=== PATIENT | male | born 1945 | race Caucasian/White ===

== ENCOUNTER 2021-03-15 14:26 | Observation (INO) | payer OTHER ==
[~2021-03-15] VITALS: Ht 182.9 cm; Wt 79.0 kg
[2021-03-15] MEDS ORDERED: ALBU2.5V5 INH (14:37)
[2021-03-15] MEDS ORDERED: CELEXA40 M1 PO (14:38)
[2021-03-15] MEDS ORDERED: IPRAT-ALBUT 0.5-3 ML INH (14:38)
[2021-03-15] MEDS ORDERED: ALBU90OI INH (14:38)
[2021-03-15] MEDS ORDERED: BUDESONIDE0.5 MG/2 M INH (14:38)
[2021-03-15] MEDS ORDERED: DIGOX250 MCG PO (14:39)
[2021-03-15] MEDS ORDERED: METO100 PO (14:39)
[2021-03-15] MEDS ORDERED: DULERA 100 MCG/13 GM INH (14:40)
[2021-03-15] MEDS ORDERED: STRIVERDI RESPIM4 G1 (14:41)
[2021-03-15] MEDS ORDERED: XARELTO20 MG PO (14:41)
[2021-03-15] MEDS ORDERED: Crestor20 MG PO (14:42)
[2021-03-15] MEDS ORDERED: TRAZ50 PO (14:42)
[2021-03-15 15:03] LABS: BASOPHILS ABSOLUTE AUTO 0.05 K/mm3 (0.00-0.23); BASOPHILS PERCENT AUTO 1 % (0-2); EOSINOPHILS ABSOLUTE AUTO 0.18 K/mm3 (0.00-0.68); EOSINOPHILS PERCENT AUTO 3 % (0-6); Hematocrit 42.3 % (37.0-53.0); Hemoglobin 13.7 g/dL (13.5-17.5); IMMATURE GRAN ABSOLUTE AUTO 0.03 K/mm3 (0.00-0.10); IMMATURE GRAN PERCENT AUTO 1 % (0-1); LYMPHOCYTES ABSOLUTE AUTO 0.82 K/mm3 (0.84-5.20); LYMPHOCYTES PERCENT AUTO 13 % (21-46); MONOCYTES ABSOLUTE AUTO 0.79 K/mm3 (0.16-1.47); MONOCYTES PERCENT AUTO 13 % (4-13); Mean Corpuscular HGB 32.4 pg (26.0-34.0); Mean Corpuscular HGB Conc 32.4 g/dL (31.5-36.5); Mean Corpuscular Volume 100 fL (80-100); Mean Platelet Volume 12.3 fL (9.1-12.4); NEUTROPHILS ABSOLUTE AUTO 4.31 K/mm3 (1.96-9.15); NEUTROPHILS PERCENT AUTO 70 % (41-73); Platelet Count 170 K/mm3 (150-400); RDW Coefficient Variation 14.2 % (11.7-14.2); RDW Standard Deviation 51.8 fL (35.1-46.3); Red Blood Cell Count 4.23 M/mm3 (4.30-5.90); White Blood Cell Count 6.18 K/mm3 (4.00-11.30)
[2021-03-15 15:21] LABS: Alanine Aminotransfer (ALT/SGP 15 U/L (12-78); Albumin, Blood 3.3 g/dL (3.4-5.0); Alk Phos 53 U/L (50-136); Anion Gap 3 mmol/L (6-16); Aspartate Aminotrans (AST/SGOT 15 U/L (12-37); Bilirubin, Total 0.6 mg/dL (0.1-1.0); Blood Urea Nitrogen 10 mg/dL (8-24); Bun/Creatinine Ratio 10.8 (12.0-20.0); CO2, Blood 31 mmol/L (21-32); Calcium, Blood 8.9 mg/dL (8.5-10.1); Chloride, Blood 103 mmol/L (98-108); Creatinine, Blood 0.93 mg/dL (0.60-1.20); Globulin, Blood 3.4 g/dL (2.2-4.0); Glomerular Filtration Rate >60 (60-); Glucose, Blood 154 mg/dL (70-99); Potassium, Blood 4.5 mmol/L (3.5-5.5); Sodium, Blood 137 mmol/L (136-145); Total Protein, Blood 6.7 g/dL (6.4-8.2); Troponin I <0.015 ng/mL (0.000-0.040)
[2021-03-15 16:15] LABS: Base Excess Venous 8.7 mmol/L; Bicarbonate Venous 29.4 mmol/L (24.0-30.0); PCO2 Venous 61.9 mmHg (38-42); PO2 Venous 33.1 mmHg (38-42); pH Blood Venous 7.35 (7.34-7.37)
[2021-03-15 18:16] LABS: International Normalized Ratio 1.31; Prothrombin Time Results 13.5 Sec (9.7-11.5)
[2021-03-15 21:19] LABS: Digoxin (Lanoxin) 0.66 ug/mL (0.80-2.00)
[2021-03-16 00:09] LABS: Influenza A, PCR NEGATIVE (NEGATIVE); Influenza B, PCR NEGATIVE (NEGATIVE); Resp Syncytial Virus, PCR NEGATIVE (NEGATIVE); SARS-Cov-2 (COVID-19) PCR, MMC NEGATIVE (NEGATIVE)
[2021-03-16 03:19] LABS: Hematocrit 42.4 % (37.0-53.0); Hemoglobin 14.3 g/dL (13.5-17.5); Mean Corpuscular HGB Conc 33.7 g/dL (31.5-36.5); Mean Corpuscular Volume 98 fL (80-100); Mean Platelet Volume 12.4 fL (9.1-12.4); Platelet Count 170 K/mm3 (150-400); RDW Standard Deviation 51.2 fL (35.1-46.3); Red Blood Cell Count 4.33 M/mm3 (4.30-5.90)
[2021-03-16 03:26] LABS: BASOPHILS ABSOLUTE AUTO 0.05 K/mm3 (0.00-0.23); BASOPHILS PERCENT AUTO 1 % (0-2); EOSINOPHILS ABSOLUTE AUTO 0.26 K/mm3 (0.00-0.68); EOSINOPHILS PERCENT AUTO 4 % (0-6); IMMATURE GRAN ABSOLUTE AUTO 0.02 K/mm3 (0.00-0.10); IMMATURE GRAN PERCENT AUTO 0 % (0-1); LYMPHOCYTES ABSOLUTE AUTO 1.37 K/mm3 (0.84-5.20); LYMPHOCYTES PERCENT AUTO 19 % (21-46); MONOCYTES ABSOLUTE AUTO 0.83 K/mm3 (0.16-1.47); MONOCYTES PERCENT AUTO 11 % (4-13); NEUTROPHILS ABSOLUTE AUTO 4.72 K/mm3 (1.96-9.15); NEUTROPHILS PERCENT AUTO 65 % (41-73); White Blood Cell Count 7.25 K/mm3 (4.00-11.30)
[2021-03-16 03:37] LABS: Anti-Xa UFH, PHA Monitoring 1.26 IU/mL
[2021-03-16 04:14] LABS: Alanine Aminotransfer (ALT/SGP 14 U/L (12-78); Albumin, Blood 3.5 g/dL (3.4-5.0); Alk Phos 58 U/L (50-136); Anion Gap 5 mmol/L (6-16); Aspartate Aminotrans (AST/SGOT 14 U/L (12-37); Bilirubin, Total 0.6 mg/dL (0.1-1.0); Blood Urea Nitrogen 12 mg/dL (8-24); Bun/Creatinine Ratio 13.9 (12.0-20.0); CO2, Blood 28 mmol/L (21-32); Calcium, Blood 9.2 mg/dL (8.5-10.1); Chloride, Blood 103 mmol/L (98-108); Creatinine, Blood 0.86 mg/dL (0.60-1.20); Globulin, Blood 3.4 g/dL (2.2-4.0); Glomerular Filtration Rate >60 (60-); Glucose, Blood 98 mg/dL (70-99); Potassium, Blood 4.1 mmol/L (3.5-5.5); Sodium, Blood 136 mmol/L (136-145); Total Protein, Blood 6.9 g/dL (6.4-8.2)
--- NOTE | 2021-03-16 05:22 | NUR ---
SHIFT SUMMARY: VINCE WAS REFERRED TO [facility] BY THE MD. HE HAS BEEN HAVING SOB FOR SEVERAL DAY. CT SCAN SHOWED PE IN THE LEFT LOWER LOBE, SMALL IN SIZE BUT IN SEVERAL SEGMENTS. HE WAS REFERRED FOR MANAGEMENT AND MONITORING. AOX3, COOPERATIVE. INDEPENDENT IN THE ROOM. DYSPNIC WITH LONG EXERTION. LUNG SOUNDS ARE DIMINISHED, SOME WHEEZES IN THE UPPER LOBES. HE DOES HAVE HX OD COPD. ON TELE AFIB. NO CHEST PAIN OR DISCOMFORT. IV IN LEFT AC INFILTRATED DURING HEPARIN INFUSION. NEW IV STARTED IN THE RIGHT FA. HEPARIN CONTINUES AT 18MG/UNIT/HR. GOOD APPETITE. VS WNL, AFEBRILE. USES CALL LIGHT APPROPRIATLY. [facility]
--- NOTE | 2021-03-16 08:00 | NUR ---
BLOOD PRESSURE HIGH. GIVEN METOPROLOL EARLY AND WILL RECHECK. AWARE
--- NOTE | 2021-03-16 11:46 | NUR ---
NOTIFIED PHARMACY, MIS, PTT 138.
--- NOTE | 2021-03-16 15:09 | NUR ---
NOTIFIED PATIENT HAD 6 BEAT OF VT WHEN HE WAS GETTING GO GOING TO BATHROOM. HAD INCREASED HEART RATE NIGHT BEFORE WHEN DOING SAME THING. TO INCREASE MEDS
--- NOTE | 2021-03-16 16:02 | NUR ---
ALERT. ORIENTED. INDEPENDENT IN ROOM. MEDS CHANGED WITH PATIENT AWARE. HEPARIN STOPPED. UNLABORED RESPIRATIONS. ABLE TO MAKE NEEDS KNOWN. PLEASANT. TELE ON. WCTM
[2021-03-17 05:11] LABS: Hematocrit 42.1 % (37.0-53.0); Mean Corpuscular HGB 32.6 pg (26.0-34.0); Mean Corpuscular HGB Conc 33.3 g/dL (31.5-36.5); Mean Corpuscular Volume 98 fL (80-100); Mean Platelet Volume 12.5 fL (9.1-12.4); Platelet Count 170 K/mm3 (150-400); RDW Standard Deviation 50.8 fL (35.1-46.3); Red Blood Cell Count 4.29 M/mm3 (4.30-5.90); White Blood Cell Count 7.56 K/mm3 (4.00-11.30)
[2021-03-17 06:28] LABS: Alanine Aminotransfer (ALT/SGP 13 U/L (12-78); Albumin, Blood 3.3 g/dL (3.4-5.0); Albumin/Globulin Ratio 0.9 (0.8-1.8); Alk Phos 51 U/L (50-136); Anion Gap 7 mmol/L (6-16); Aspartate Aminotrans (AST/SGOT 13 U/L (12-37); Bilirubin, Total 0.5 mg/dL (0.1-1.0); Blood Urea Nitrogen 11 mg/dL (8-24); Bun/Creatinine Ratio 14.5 (12.0-20.0); CO2, Blood 26 mmol/L (21-32); Chloride, Blood 103 mmol/L (98-108); Creatinine, Blood 0.76 mg/dL (0.60-1.20); Globulin, Blood 3.6 g/dL (2.2-4.0); Glomerular Filtration Rate >60 (60-); Glucose, Blood 132 mg/dL (70-99); Magnesium, Blood 1.8 mg/dL (1.6-2.4); Potassium, Blood 4.4 mmol/L (3.5-5.5); Sodium, Blood 136 mmol/L (136-145); Total Protein, Blood 6.9 g/dL (6.4-8.2)
[2021-03-17] MEDS ORDERED: ELIQUIS5 M2 PO (10:54)
[2021-03-17] MEDS ORDERED: DILT120 PO (10:55)
--- NOTE | 2021-03-17 12:26 | NUR ---
PT DISCHARGED THE PT VERBALIZED UNDERSTANDING OF THE DC INSTRUCTIONS. THE PT WAS GIVEN MEDICATION VOUCHERS FOR THE STEPHANIE OH THE INFORMAL WAITER/WAITRESS BEFORE DC. THE PT PRESCRIPTIONS WERE FAXED TO THE [facility] ALSO. THE PT WAS REMINDED TO CALL HIS PCP FOR A POST HOSPITAL REVIEW. THE PT WAS TRANSFERED VIA WHEELCHAIR TO THE FRONT ENTRANCE TO MEET HIS RIDE.
== END 2021-03-17 11:40 | disposition home or self-care (01) ==
LOC: ER 14:26 → MEDS 14:27 → ER 17:26 → MEDS 18:37 → ENPENDDIS 03-17 10:48 → MEDS 03-17 11:40
PROVIDERS: Internal Medicine; Pharmacist; Student in an Organized Health Care Education/Training Program; ADMIT Internal Medicine
DX: I26.94 Multiple subsegmental thrombotic pulmonary emboli without acute cor pulmonale (principal); J44.1 Chronic obstructive pulmonary disease with (acute) exacerbation; I48.91 Unspecified atrial fibrillation; I10 Essential (primary) hypertension; F17.200 Nicotine dependence, unspecified, uncomplicated; E78.5 Hyperlipidemia, unspecified; Z88.8 Allergy status to other drugs, medicaments and biological substances; Z79.01 Long term (current) use of anticoagulants; Z20.822 Contact with and (suspected) exposure to COVID-19
CPT/HCPCS: 0241U; 36415; 71046; 71260; 80053; 80162; 82803; 83735; 83880; 84484; 85025; 85027; 85520; 85610; 85730; 93005; 93010; 93306; 94640; 94664; 94760; 96374; 96375; 96376; 99285-25; A9270; G0378; J1644; J2930; Q9967

== ENCOUNTER 2021-10-30 11:06 | Inpatient (IN) | payer OTHER ==
[~2021-10-30] VITALS: Ht 182.9 cm; Wt 74.4 kg
[~2021-10-30 11:06] MED LIST: ALBU2.5V5 INH; ALBU90OI INH; BUDESONIDE0.5 MG/2 M INH; CELEXA40 M1 PO; Crestor20 MG PO; DIGOX250 MCG PO; DILT120 PO; DULERA 100 MCG/13 GM INH; ELIQUIS5 M2 PO; IPRAT-ALBUT 0.5-3 ML INH; METO100 PO; STRIVERDI RESPIM4 G1; TRAZ50 PO; XARELTO20 MG PO
[2021-10-30 12:09] LABS: BASOPHILS ABSOLUTE AUTO 0.05 K/mm3 (0.00-0.23); BASOPHILS PERCENT AUTO 1 % (0-2); EOSINOPHILS ABSOLUTE AUTO 0.09 K/mm3 (0.00-0.68); EOSINOPHILS PERCENT AUTO 1 % (0-6); Hematocrit 45.6 % (37.0-53.0); Hemoglobin 15.5 g/dL (13.5-17.5); IMMATURE GRAN ABSOLUTE AUTO 0.02 K/mm3 (0.00-0.10); IMMATURE GRAN PERCENT AUTO 0 % (0-1); LYMPHOCYTES ABSOLUTE AUTO 1.15 K/mm3 (0.84-5.20); LYMPHOCYTES PERCENT AUTO 15 % (21-46); MONOCYTES ABSOLUTE AUTO 0.89 K/mm3 (0.16-1.47); MONOCYTES PERCENT AUTO 11 % (4-13); Mean Corpuscular HGB 33.2 pg (26.0-34.0); Mean Corpuscular Volume 98 fL (80-100); NEUTROPHILS ABSOLUTE AUTO 5.58 K/mm3 (1.96-9.15); NEUTROPHILS PERCENT AUTO 72 % (41-73); Platelet Count 161 K/mm3 (150-400); RDW Coefficient Variation 14.6 % (11.7-14.2); RDW Standard Deviation 53.6 fL (35.1-46.3); Red Blood Cell Count 4.67 M/mm3 (4.30-5.90); White Blood Cell Count 7.78 K/mm3 (4.00-11.30)
[2021-10-30 12:12] LABS: Mean Platelet Volume 13.1 fL (9.1-12.4)
[2021-10-30 12:19] LABS: Albumin, Blood 3.4 g/dL (3.4-5.0); Bilirubin, Total 1.5 mg/dL (0.1-1.0); Bun/Creatinine Ratio 14.1 (12.0-20.0); Calcium, Blood 9.3 mg/dL (8.5-10.1); Creatinine, Blood 0.92 mg/dL (0.60-1.20); Globulin, Blood 3.3 g/dL (2.2-4.0); Potassium, Blood 4.5 mmol/L (3.5-5.5); Total Protein, Blood 6.7 g/dL (6.4-8.2)
[2021-10-30 15:17] LABS: pH Blood Venous 7.36 (7.34-7.37)
[2021-10-30 15:18] LABS: Base Excess Venous 9.2 mmol/L; Bicarbonate Venous 29.1 mmol/L (24.0-30.0); PCO2 Venous 61.9 mmHg (38-42)
--- NOTE | 2021-10-30 17:43 | NUR ---
ADMISSION NOTE PT IS A/Ox4 AND FOLLOWS DIRECTIONS FROM STAFF APPROPRIATELY. PT WAS ABLE TO STAND/PIVOT FROM ED BED TO PCU BED WITH LITTLE ASSISTANCE. PT MAINTAINS SP02 >94 ON RA. SOB NOTED WHEN PT AMBULATES, BUT RECOVERS QUICKLEY. HR 120-140'S WHEN AMBULATING, BUT DECREASES TO 90-120'S WHEN AT REST. PT RECEIVINIG DILTIAZEM 5MG/HR. PT EDUCATED CLIMATOLOGY TEACHER LIGHT AND SAFETY PRECAUTIONS WELL ORIENTATED TO THE ROOM. SBP MAINTAINING IN THE 140'S. GLENN RAND
--- NOTE | 2021-10-30 20:28 | NUR ---
CARE ASSUMPTION: PATIENT IN BED WITH CARDIZEM DRIP AT 10 MG/HR, HR 110-130S, AFEBRILE. PATIENT REPORTED SOB - RT GAVE NEBULIZER TREATMENT RESULTING IN IMPROVED O2 SATS AND WORK OF BREATHING. PATIENT PLEASANT AND COOPERATIVE WITH CARE. BED ALARM SET TO PREVENT UNSUPERVISED ACTIVITY, EDEMATOUS LEGS RAISED ABOVE HEART, AND CALL LIGHT IN REACH.
--- NOTE | 2021-10-30 22:51 | NUR ---
UPDATE: PATIENT INCREASED SOB AND O2 SATS 87-92% RA. RT PROVIDED SECOND BREATHING TREATMENT, BUT RECOMMENDED CALL TO DR FOR DIURESIS AND/OR SOLUMEDROL. THIS RN CALLED HOSPITALIST DR. DANIELLE R/T WOB AND FLUID OVERLOAD AND RECEIVED NEW ORDERS FOR 1X DOSE OF LASIX AND FLUID RESTRICTION OF 1.5L/DAY.
--- NOTE | 2021-10-30 23:51 | NUR ---
UPDATE: DIALTIAZEM DRIP STOPPED AT THIS TIME. HR 80-100S.
--- NOTE | 2021-10-31 01:21 | NUR ---
UPDATE: PATIENT HR >120S. RESTARTED DILTIAZEM 5 MLS/HR AT THIS TIME.
[2021-10-31 03:50] LABS: Hematocrit 51.5 % (37.0-53.0); Mean Corpuscular HGB 32.7 pg (26.0-34.0); Mean Corpuscular Volume 99 fL (80-100); Mean Platelet Volume 12.5 fL (9.1-12.4); Platelet Count 166 K/mm3 (150-400); RDW Coefficient Variation 14.6 % (11.7-14.2); RDW Standard Deviation 53.9 fL (35.1-46.3); White Blood Cell Count 8.26 K/mm3 (4.00-11.30)
[2021-10-31] MEDS ORDERED: Bisoprolol Fuma10 MG PO (03:58)
[2021-10-31] MEDS ORDERED: DIGOX125 MC1 PO (03:59)
[2021-10-31] MEDS ORDERED: SPIR25 PO (04:00)
[2021-10-31 04:07] LABS: Bun/Creatinine Ratio 15.4 (12.0-20.0); Calcium, Blood 8.5 mg/dL (8.5-10.1); Creatinine, Blood 0.97 mg/dL (0.60-1.20)
[2021-10-31] MEDS ORDERED: ESCI20 PO (04:39)
--- NOTE | 2021-10-31 05:24 | NUR ---
SHIFT SUMMARY: PATIENT DENIES CHEST PAIN, AFEBRILE. HR 70-130S T/O SHIFT. 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 PULSE OX MOVED TO EAR FOR BETTER PLETH. DILTIAZEM WAS BRIEFLY PAUSED WHEN PATIENT PULLED IV - NEW IV PLACED AND DRIP RUNNING AT 5 MLS/HR. PATIENT PLEASANT AND COOPERATIVE WITH CARE, USES CALL LIGHT APPROPRIATELY. HOME MEDS RECONCILED. BED LOW WITH CALL LIGHT IN REACH. WILL CONTINUE TO MONITOR AND REPORT TO ONCOMING RN.
--- NOTE | 2021-10-31 17:15 | NUR ---
PT UPDATE PT'S HR CONSISTANTLY RUNNING 120-140'S AND SOMETIMES REACHING THE 150'S. PT ALSO HAD A 6 BEAT RUN OF ASYMPTOMATIC VTACH. UPDATED DR. YOUNG ABOUT THE PT'S CHANGE IN CONDITION WHERE SHE ORDERED PT BE PLACED BACK ON THE DILTIAZEM DRIP AT 5MG/HR WELL NEW MAG/POTASSIUM LABS BE DRAWN. AFTER 20 MIN PT STILL MAINTAINING 120'S-140'S SO DILTIAZEM TITRATED TO 10MG/HR PER ORDERS IN EMAR. WILL CONTINUE TO CLOSELY MONITOR
[2021-10-31 18:02] LABS: Potassium, Blood 3.9 mmol/L (3.5-5.5)
--- NOTE | 2021-10-31 18:17 | NUR ---
SHIFT SUMMARY PT IS A/Ox4 AND COOPERATIVE WITH STAFF. PT WAS TIRATED OFF DILTIAZEM DURING THE NIGHT AND PT'S HR HAS MAINAINED 100'S-120 T/O MOST OF THE SHIFT. TOWARDS THE PM THE PT'S HR MAINTAINED 120'S-140'S AND SOMETIMES TOUCHING THE 150'S. PT STARTED BACK ON DILTIAZEM AT 5MG/HR THAT WAS LATER TIRATED TO 10MG/HR. PT HAS MAINATINED SPO2 >94 ON 2L O2 VIA NC. PT LS IS WHEEZY T/O, BUT FREQUENT BREATHING TREATMENTS APPEAR TO HELP. PT DOES NOT REPORT ANY CHEST PAIN OR PRESSURE. PT DISPLAYS DYSPNEA WHEN STANDING TO VOID OR WHEN REPOSITIONING IN BED. PT ALSO HAD A 6 BEAT RUN OF ASYMPTOMATIC VTACH WHEN RESUMING THE DILTIAZEM DRIP. NADN T/O THE SHIFT
--- NOTE | 2021-10-31 22:42 | NUR ---
CARE ASSUMPTION: PATIENT SITTING ON SIDE OF BED WITH CARDIZEM DRIP AT 10 MLS/HR RUNNING AT BEGINNING OF SHIFT. PATIENT REPORTS FEELING "MUCH BETTER" TODAY, EXPRESSES CONCERN ABOUT GOING HOME WHERE HE HAS NO SUPPORT. HR SUSTAINING 80-100S, TITRATED DRIP TO 5 MLS/HR ~2130. RT TO SEE PATIENT AT THIS TIME AND REPORTS CRACKLES RETURNING TO BASES AND BREATHING TREATMENT DID NOT IMPROVE PATIENT SYMPTOMS. BED LOW WITH CALL LIGHT IN REACH.
--- NOTE | 2021-11-01 00:59 | NUR ---
UPDATE: 10 BEAT VTACH AT THIS TIME. PATIENT DENIES DISCOMFORT.
--- NOTE | 2021-11-01 01:09 | NUR ---
CALL TO HOSPITALIST: PATIENT HR 60-100S FOR >3 HRS. THIS RN CALLED HOSPITALIST ABOUT BRIDGING TO PO DILTIAZEM AT THIS TIME PER PROTOCOL. DR. DANIELLE CONCERNED ABOUT STARTING PO DILTIAZEM WITH SYSTOLIC HF, SAID TO STOP DRIP AND "LEAVE TO DAY TEAM" WHETHER TO START CARDIZEM PO OR UP METOPROLOL DOSE.
--- NOTE | 2021-11-01 01:13 | NUR ---
DILTIAZEM DRIP STOPPED AT THIS TIME.
[2021-11-01 04:39] LABS: Albumin, Blood 3.1 g/dL (3.4-5.0); Anion Gap 4 mmol/L (6-16); Blood Urea Nitrogen 18 mg/dL (8-24); Bun/Creatinine Ratio 28.2 (12.0-20.0); CO2, Blood 36 mmol/L (21-32); Calcium, Blood 8.6 mg/dL (8.5-10.1); Chloride, Blood 94 mmol/L (98-108); Creatinine, Blood 0.64 mg/dL (0.60-1.20); Glomerular Filtration Rate 99 (60-); Glucose, Blood 120 mg/dL (70-99); Phosphorus, Blood 3.2 mg/dL (2.5-4.9); Potassium, Blood 3.5 mmol/L (3.5-5.5); Sodium, Blood 134 mmol/L (136-145)
--- NOTE | 2021-11-01 05:13 | NUR ---
SHIFT SUMMARY: PATIENT DENIES CHEST PAIN OR SOB, REPORTED FEELING "BETTER THAN I HAVE IN YEARS" DURING 0400 VITALS. WAS DISORIENTED DURING 0000 VITALS, BUT WAS DIRECTABLE AND CLEARED WITH RE-ORIENTATION. BED ALARM SET. O2 SATS >90% RA. MEDICATED PER EMAR. HR HAS MAINTAINED <110S SINCE STOPPING THE DILTIAZEM DRIP. PATIENT HAD 2.7 SEC PAUSE IN EARLY AM. BED LOW WITH CALL LIGHT IN REACH. WILL CONTINUE TO MONITOR AND REPORT TO ONCOMING RN.
--- NOTE | 2021-11-01 09:50 | NUR ---
UPDATE SPOKE WITH DR. CORNELIUS ABOUT PT'S PLAN OF CARE WELL HIS STATUS. DR. CORNELIUS REVIEWED THE PT'S MEDICATIONS AND ORDERED CHANGES TO THEIR ROUTES DUE TO THE PT BEING A HIGH ASPIRATION RISK. PT'S BiPAP SETTINGS WERE MODIFIED BY RT TO 22/8, FIO2 30%, BUR @ 16. PT IS HOLDING SPO2 >94 WITH THESE SETTINGS. WILL CONTINUE TO MONITOR CLOSELY
--- NOTE | 2021-11-01 09:55 | NUR ---
UPDATE SPOKE WITH DR. YOUNG ABOUT PT'S INCREASELY VARYING HR WELL [address] YOUNG THEN ORDERED A CARDIOLOGY CONSULT TO FUTHER THE PT'S PLAN OF CARE. PTS BP'S HAVE BEEN STABLE WITH NO DIZZNESS OR WEAKNESS REPORTED. WILL CONTINUE TO MONITOR
--- NOTE | 2021-11-01 16:45 | NUR ---
Notified licensed customs broker that hr sustaining over 120's, bp stable, new order for additional dose of metoprolol tartrate 50mg po now, entered. Will continue to monitor.
--- NOTE | 2021-11-01 19:19 | NUR ---
SHIFT SUMMARY PT IS A/Ox4 AND FOLLOWS DIRECTONS FROM STAFF. PT'S HR HAS BEEN VARYING WILDLY T/O THE SHIFT FROM 40'S-150'S. HR PRIMARLY HOLDING 110-120'S. PT RECEIVED A CARDIOLOGY CONSULT WHERE HE WAS PUT ON DIGOXIN PO AND AN INCREASE IN HIS LOPRESSER. PT MAINTAINS SPO2 >94% ON RA AND HIS LS HAVE BEEN IMPROVING. PT'S EDEMA HAS IMPROVED WELL. BP'S VARIED 110'S-140'S BUT ARE STABLE. PRIMARY GOAL IS RATE CONTROL AND PREVENTION OF ANY MORE PAUSES. NADN, VSS T/O THE SHIFT
[2021-11-02 02:15] LABS: BASOPHILS ABSOLUTE AUTO 0.01 K/mm3 (0.00-0.23); BASOPHILS PERCENT AUTO 0 % (0-2); EOSINOPHILS PERCENT AUTO 0 % (0-6); Hemoglobin 15.7 g/dL (13.5-17.5); IMMATURE GRAN ABSOLUTE AUTO 0.05 K/mm3 (0.00-0.10); IMMATURE GRAN PERCENT AUTO 1 % (0-1); LYMPHOCYTES ABSOLUTE AUTO 0.73 K/mm3 (0.84-5.20); LYMPHOCYTES PERCENT AUTO 7 % (21-46); MONOCYTES ABSOLUTE AUTO 0.92 K/mm3 (0.16-1.47); MONOCYTES PERCENT AUTO 9 % (4-13); Mean Corpuscular HGB 32.5 pg (26.0-34.0); Mean Corpuscular HGB Conc 34.1 g/dL (31.5-36.5); Mean Corpuscular Volume 95 fL (80-100); Mean Platelet Volume 12.6 fL (9.1-12.4); NEUTROPHILS ABSOLUTE AUTO 8.77 K/mm3 (1.96-9.15); NEUTROPHILS PERCENT AUTO 84 % (41-73); Platelet Count 170 K/mm3 (150-400); RDW Coefficient Variation 14.1 % (11.7-14.2); RDW Standard Deviation 49.4 fL (35.1-46.3); Red Blood Cell Count 4.83 M/mm3 (4.30-5.90); White Blood Cell Count 10.48 K/mm3 (4.00-11.30)
[2021-11-02 02:47] LABS: Albumin, Blood 3.2 g/dL (3.4-5.0); Anion Gap 6 mmol/L (6-16); Blood Urea Nitrogen 30 mg/dL (8-24); CO2, Blood 34 mmol/L (21-32); Chloride, Blood 93 mmol/L (98-108); Creatinine, Blood 1.07 mg/dL (0.60-1.20); Digoxin (Lanoxin) 1.24 ug/mL (0.80-2.00); Glomerular Filtration Rate 72 (60-); Glucose, Blood 124 mg/dL (70-99); Phosphorus, Blood 3.9 mg/dL (2.5-4.9); Sodium, Blood 133 mmol/L (136-145)
--- NOTE | 2021-11-02 05:45 | NUR ---
SHIFT SUMMARY ASSUMED CARE OF PT AT 1900. PT IS ABLE TO NOD HEAD WITH UNDERSTANDING BUT IS NOT TALKING. PT AWAKE AND ASKED TO TAKE OFF MASK BUT WAS REDIRECTED AND FELL BACK ASLEEP. AT AROUND 0300 PT AWOKE ASKING FOR WATER. DISCUSSED CARE WITH RT AND PT WAS TAKEN OFF BIPAP FOR 1 HOUR. ORAL CARE AND BED CHAGE PERFORMED. PT TOLERATED DRINKING WATER WELL. PO MEDS KHANH EARLIER DUE TO LETHARGY. PT WENT BACK ON MASK AND IS TOLERATING IT WELL. HEART SOUNDS IRREGULAR. 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 LUNG SOUNDS VERY DIMINISHED AT BASES, BIPAP SETTINGS REMAIN 22/8 AT 30%. PT HAD SMALL BM WITH SHIFT, ABD IS VERY DISTENED AND FIRM. TAO DRAINING CLEAR YELLOW URINE. PT WAS TOTAL CARE, TURNED Q2. PT REPORTED PAIN WITH MOVEMENT BUT NOT AT REAST. PT LLE IS WEEPING, AND RLE DRESSING C/D/I. PT BUTTOCK IS VERY EXCORIATED. MEPILEX TO COCCYX.
--- NOTE | 2021-11-02 05:58 | NUR ---
SHIFT SUMMARY ASSUMED CARE OF PT AT 1900. PT IS A/OX4. HEART SOUNDS IRREGULAR. PT WAS IN AFIB IN THE 120-150 AT THE START OF SHIFT. HOSPITALIST NOFITED AND ORDERED LOPRESSOR, THIS HAD NO EFFECT. HOSPITALIST THEN REVIEWED CHART MORE EXTENSIVLY AND ORDRED ANOTHER DOSE OF DIGOXIN. PT REPONDED WELL AFTER 2 HOURS AND HR IS IN THE 110S THE REST OF THE NIGHT. PT WAS A 1P ASSIST TO BATHROOM. USED URINAL T/O THE NIGHT. PT HAD NO OTHER COMPLAINTS.
--- NOTE | 2021-11-02 10:56 | NUR ---
UPDATE PT CURRENTLY RESTING. HR CURRENTLY A-FIB AT 70-90'S
--- NOTE | 2021-11-02 15:13 | NUR ---
Pt resting in bed and is A&O. Pt denies pain and dyspnea at this time. Pt reports living with a roomate, is not and has one son whom he has not been in contact with for 30 years. Pt reports at baseline he is independent of his ADLs. He does express concerns regarding his heart health and knows he may need caregiver support at some point. Continued active listening and answered questions. Gentle education on disease process inclduing trajectory. Discussed the importance of routine conversations with PCP regarding disease process and making multiple plans as disease progresses. Discussed considering [facility] program with Pt being in agreement. Pt expresses appreciation and reports no other concerns at this time. Spoke with RN Alejandra Smith and relayed Pt's request for the AIM program. Palliative Care will remain available.
--- NOTE | 2021-11-02 17:41 | NUR ---
SHIFT SUMMARY PT A/OX4 AND COOPERATIVE OF CARE. PT HR RANGED 70-130'S THROUGHOUT SHIFT WITH OCCSASIONAL RUNS OF VTACH, 8 BEAT RUN PRINTED AND IN CHART. OTHER VSS THROUGHOUT SHIFT WITH O2 SATS >90% ON RA. PT REPORTS LEFT ABD PAIN, REPOSITIONIG FOR COMFORT AND TREATED PER EMAR. PT STARTED ON DIGOXIN TODAY PER ORDERS. NO REPORT OF CHEST PAIN/PRESSURE THROUGHOUT SHIFT. NO REPORT OF SOB THROUGHOUT SHIFT. PT UP IN ROOM MULTIPLE TIMES TO USE URINAL AND TOILET, TOLERATED WELL. PT REMAINED ON FLUID RESTRICTION. PT REORTED "SWELLING IN MY ANKLES IS DOING SO MUCH BETTER TODAY." LASIX DC'D AND PT STARTED ON SPIRONOLACTONE PER ORDERS.
[2021-11-03 03:16] LABS: Base Excess Venous 12.6 mmol/L; Bicarbonate Venous 34.4 mmol/L (24.0-30.0); PCO2 Venous 46.4 mmHg (38-42)
[2021-11-03 04:40] LABS: Anion Gap 5 mmol/L (6-16); Blood Urea Nitrogen 30 mg/dL (8-24); Bun/Creatinine Ratio 29.1 (12.0-20.0); CO2, Blood 34 mmol/L (21-32); Calcium, Blood 8.8 mg/dL (8.5-10.1); Chloride, Blood 94 mmol/L (98-108); Creatinine, Blood 1.03 mg/dL (0.60-1.20); Digoxin (Lanoxin) 1.52 ug/mL (0.80-2.00); Glomerular Filtration Rate 76 (60-); Glucose, Blood 108 mg/dL (70-99); Potassium, Blood 4.1 mmol/L (3.5-5.5); Sodium, Blood 133 mmol/L (136-145)
--- NOTE | 2021-11-03 06:05 | NUR ---
SHIFT SUMMARY ASSUMED CARE OF PT AT 1900. PT IS A/OX4. HEART SOUNDS IRREGULAR. TELE SHOWED AFIB T/O THE NIGHT. PT HAD MULTIPLE RUNS OF 5BEETS OF VATCH. PT ASYMTOMATIC AND SLEEPING USUALLY. PT HR WAS MORE CONTROLED THS NOC. RANGED FROM 120S-70S. LUNG SOUNDS COURSE. PT STATES HE IS FEELING BETTER EXCEPT FOR HAVING ABD PAIN, WHICH HE SAYS HE HAS NOT HAD A SCAN FOR AND IS WORRIED THAT IT MIGHT BE SOMETHING THAT BRINGS HIM BACK TO HOSPITAL. ABD IS SOFT BUT THE PAIN IS SHARP. TYENOL HELPS A LITTLE BUT NOT MUCH.
--- NOTE | 2021-11-03 16:51 | NUR ---
SHIFT SUMMARY PT A/O X4 AND COOPERATIVE OF CARE. VSS THROUGHOUT SHIFT WITH 02 SATS >90% ON RA. NO REPORT OF CHEST PAIN/PRESSURE THROUGHOUT SHIFT. PT NOT REPORTING SOB, BUT APPEARS TO BE SOB WITH EXERTION. PT STATING THAT HE HAS BEEN HAVING LEFT ABDOMINLAL PAIN THAT HAS INCREASED SINCE YESTERDAY, NOTIFIED, ONE TIME TORADOL ORDERED. HEAT PAD AND REPOSITIONING DONE FOR ABD PAIN, PT REPORTS PAIN MED AND HEAT PAD "SEEM TO BE WORKING." PT INDEPENDENT IN ROOM USING URINAL AT BEDSIDE. PT HR AVERAGED IN THE 70-90'S, TACHS UP BRIEFLY TO 120-130'S WITH EXERTION BUT QUICKLY RETURNS TO 70-90'S.
[2021-11-04 04:25] LABS: BASOPHILS ABSOLUTE AUTO 0.01 K/mm3 (0.00-0.23); BASOPHILS PERCENT AUTO 0 % (0-2); EOSINOPHILS ABSOLUTE AUTO 0.02 K/mm3 (0.00-0.68); EOSINOPHILS PERCENT AUTO 0 % (0-6); Hematocrit 47.2 % (37.0-53.0); Hemoglobin 16.2 g/dL (13.5-17.5); IMMATURE GRAN ABSOLUTE AUTO 0.06 K/mm3 (0.00-0.10); IMMATURE GRAN PERCENT AUTO 1 % (0-1); LYMPHOCYTES ABSOLUTE AUTO 0.89 K/mm3 (0.84-5.20); LYMPHOCYTES PERCENT AUTO 9 % (21-46); MONOCYTES ABSOLUTE AUTO 1.11 K/mm3 (0.16-1.47); MONOCYTES PERCENT AUTO 11 % (4-13); Mean Corpuscular HGB 32.7 pg (26.0-34.0); Mean Corpuscular HGB Conc 34.3 g/dL (31.5-36.5); Mean Corpuscular Volume 95 fL (80-100); NEUTROPHILS PERCENT AUTO 80 % (41-73); Platelet Count 151 K/mm3 (150-400); RDW Coefficient Variation 13.7 % (11.7-14.2); RDW Standard Deviation 48.3 fL (35.1-46.3); Red Blood Cell Count 4.95 M/mm3 (4.30-5.90); White Blood Cell Count 10.39 K/mm3 (4.00-11.30)
[2021-11-04 04:27] LABS: Base Excess Venous 10.4 mmol/L; PCO2 Venous 52.7 mmHg (38-42); pH Blood Venous 7.43 (7.34-7.37)
[2021-11-04 04:32] LABS: Mean Platelet Volume 12.8 fL (9.1-12.4)
[2021-11-04 04:41] LABS: Bun/Creatinine Ratio 30.1 (12.0-20.0); Calcium, Blood 8.5 mg/dL (8.5-10.1); Creatinine, Blood 1.13 mg/dL (0.60-1.20); Potassium, Blood 4.1 mmol/L (3.5-5.5)
--- NOTE | 2021-11-04 05:45 | NUR ---
SHIFT SUMMARY PATIENT ALERT, ORIENTED x4, ABLE TO MAKE NEEDS KNOWN TO STAFF. VSS. TELE READING AFIB 90-100s, NO SIGNIFICANT EVENTS PER MAGAZINE REPAIRER OVER NIGHT. REMAINS ON RA WITH O2 SAT >90%. USES URINAL INDEPENDENTLY WITH ADEQUATE URINE OUTPUT THIS SHIFT. MEDICATED x1 THIS SHIFT FOR LEFT ABDOMINAL PAIN WITH RELIEF. NO OTHER ACUTE CHANGES THIS SHIFT, WILL REPORT TO DAY SHIFT RN.
[2021-11-04] MEDS ORDERED: LOSA25 PO (09:56)
[2021-11-04] MEDS ORDERED: Prednisone10 MG PO (09:57)
--- NOTE | 2021-11-04 11:54 | NUR ---
UPDATE PT REMAINS ALERT AND ORIENTED. VS STABLE. DR. VIGIL IN THIS AM WITH PLANS FOR DC. DC INSTRUCTIONS PROVIDED TO PT AND PT EDUCATED ON MEDICATIONS. ALL QUESTIONS ANSWERED. PT TAKEN OUT BY WC.
== END 2021-11-04 11:56 | disposition home or self-care (01) | DRG 291 ==
LOC: ER 11:06 → PCU 14:43
PROVIDERS: Emergency Medicine; Family Medicine; Internal Medicine; Internal Medicine Interventional Cardiology; Student in an Organized Health Care Education/Training Program; ADMIT Internal Medicine
DX: I11.0 Hypertensive heart disease with heart failure (principal); I50.43 Acute on chronic combined systolic (congestive) and diastolic (congestive) heart failure; E87.1 Hypo-osmolality and hyponatremia; E87.3 Alkalosis; J44.1 Chronic obstructive pulmonary disease with (acute) exacerbation; I48.21 Permanent atrial fibrillation; E87.2 Acidosis; K21.9 Gastro-esophageal reflux disease without esophagitis; J44.9 Chronic obstructive pulmonary disease, unspecified; E78.5 Hyperlipidemia, unspecified; Z87.891 Personal history of nicotine dependence; Z79.899 Other long term (current) drug therapy; Z86.711 Personal history of pulmonary embolism; E88.09 Other disorders of plasma-protein metabolism, not elsewhere classified; T50.1X5A Adverse effect of loop [high-ceiling] diuretics, initial encounter
CPT/HCPCS: 36415; 71046; 80048; 80053; 80069; 80162; 82803; 83735; 83880; 84132; 84484; 85025; 85027; 93005; 93010; 93306; 94640; 94664; 94667; 94760; 94762; 96365; 96375; 96376; 98960; 99285-25; A9270; J1885; J1940; J7512

== ENCOUNTER 2022-05-15 05:43 | Day surgery (SDC) | payer OTHER ==
[~2022-05-15] VITALS: Ht 182.9 cm; Wt 75.9 kg
[~2022-05-15 05:43] MED LIST changes: +Bisoprolol Fuma10 MG PO; +DIGOX125 MC1 PO; +ESCI20 PO; +LOSA25 PO; +Prednisone10 MG PO; +SPIR25 PO
[2022-05-15] MEDS ORDERED: PULMICORT0.5 MG/21 INH (06:39)
[2022-05-15] MEDS ORDERED: IPRAT-ALBUT 0.5-3 ML NEB (06:40)
[2022-05-15] MEDS ORDERED: Amiodarone HCl200 MG PO (06:42)
--- NOTE | 2022-05-15 07:50 | NUR ---
PT AWAKE AND CONVERSING APPROPRIATELY; DENIES PAIN POST PROCEDURE, VSS ON RA.
--- NOTE | 2022-05-15 08:45 | NUR ---
PT DRESSED SELF WITHOUT ISSUE, IV REMOVED-CANNULA INTACT. PT RECEIVED DISCHARGE INSTRUCTIONS, MED LIST AND AFTER CARE INSTRUCTIONS; VERBALIZED GOOD UNDERSTANDING. PT LEFT FACILITY VIA W/C, CONDITION STABLE.
== END 2022-05-15 08:45 | disposition home or self-care (01) ==
LOC: MHTC 05:43
DX: I48.11 Longstanding persistent atrial fibrillation (principal); J44.9 Chronic obstructive pulmonary disease, unspecified; I42.8 Other cardiomyopathies; I11.9 Hypertensive heart disease without heart failure; E78.5 Hyperlipidemia, unspecified; F17.200 Nicotine dependence, unspecified, uncomplicated; Z88.8 Allergy status to other drugs, medicaments and biological substances; Z79.899 Other long term (current) drug therapy; Z79.01 Long term (current) use of anticoagulants
CPT/HCPCS: 92960; J0282; J2370; J2704; J7030

== ENCOUNTER 2022-08-08 10:44 | Day surgery (SDC) | payer OTHER ==
[~2022-08-08] VITALS: Ht 182.9 cm; Wt 73.0 kg
[~2022-08-08 10:44] MED LIST changes: +Amiodarone HCl200 MG PO; +IPRAT-ALBUT 0.5-3 ML NEB; +PULMICORT0.5 MG/21 INH; +TORSE20 PO; +Voltaren100 GM TOP
--- NOTE | 2022-08-08 15:45 | NUR ---
PATIENT ARRIVED TO RECOVERY ROOM WITH HOB FLAT. L GROIN SITE C/D/I SOFT/NONTENDER, NO EVIDENCE OF HEMATOMA. VSS ON ROOM AIR. PATIENT CONVERSING APPROPRIATELY.
[2022-08-08 15:51] VITALS: BP 140/101
[2022-08-08 16:04] VITALS: BP 131/103
[2022-08-08 16:15] VITALS: BP 141/118
[2022-08-08 16:20] VITALS: BP 155/116
[2022-08-08 16:30] VITALS: BP 147/124
--- NOTE | 2022-08-08 16:37 | NUR ---
HOB ELEVATED 30-45 DEGREES. L GROIN SITE C/D/I SOFT/NONTENDER, NO EVIDENCE OF HEMATOMA. VSS ON ROOM AIR. PT TOLERATING PO INTAKE WELL.
[2022-08-08 17:00] VITALS: BP 160/136
--- NOTE | 2022-08-08 17:05 | NUR ---
PATIENT SITTING UPRIGHT IN BED. L GROIN SITE C/D/I SOFT/NONTENDER, NO EVIDENCE OF HEMATOMA. DISCHARGE PAPERWORK REVIEWED WITH PATIENT. VSS ON ROOM AIR.
--- NOTE | 2022-08-08 17:17 | NUR ---
PATIENT STANDING AND AMBULATING. L GROIN SITE C/D/I SOFT/NONTENDER, NO EVIDENCE OF HEMATOMA. PIV REMOVED WITHOUT DIFFICULTY, CATHETER INTACT.
--- NOTE | 2022-08-08 17:27 | NUR ---
PATIENT DISCHARGED HOME AT THIS TIME. ALL PATIENT BELONGINGS AND PAPERWORK LEFT WITH PATIENT. L GROIN SITE C/D/I SOFT/NONTENDER, NO EVIDENCE OF HEMATOMA. PATIENT WHEELED TO HOSPITAL ENTRANCE. FRIEND, HALIMA ABLE TO PROVIDE TRANSPORTATION HOME.
[2022-08-15] MEDS ORDERED: TRAZ50 PO (17:50)
== END 2022-08-08 17:30 | disposition home or self-care (01) ==
LOC: MHTC 10:44
DX: I70.229 Atherosclerosis of native arteries of extremities with rest pain, unspecified extremity (principal); I10 Essential (primary) hypertension; Z88.8 Allergy status to other drugs, medicaments and biological substances
CPT/HCPCS: 76937; 99152; 99153; C1725; C1760; C1769; C1874; C1887; C1894; C2623; J1644; J2250; J3010; J7030; Q9967

== ENCOUNTER 2022-08-15 13:13 | Inpatient (IN) | payer OTHER ==
[~2022-08-15] VITALS: Ht 182.9 cm; Wt 68.5 kg
[2022-08-15 14:25] LABS: BASOPHILS ABSOLUTE AUTO 0.03 K/mm3 (0.00-0.23); BASOPHILS PERCENT AUTO 0 % (0-2); EOSINOPHILS ABSOLUTE AUTO 0.01 K/mm3 (0.00-0.68); EOSINOPHILS PERCENT AUTO 0 % (0-6); Hematocrit 43.7 % (37.0-53.0); Hemoglobin 14.5 g/dL (13.5-17.5); IMMATURE GRAN ABSOLUTE AUTO 0.13 K/mm3 (0.00-0.10); IMMATURE GRAN PERCENT AUTO 1 % (0-1); LYMPHOCYTES ABSOLUTE AUTO 1.16 K/mm3 (0.84-5.20); LYMPHOCYTES PERCENT AUTO 11 % (21-46); MONOCYTES PERCENT AUTO 11 % (4-13); Mean Corpuscular HGB 33.5 pg (26.0-34.0); Mean Corpuscular HGB Conc 33.2 g/dL (31.5-36.5); Mean Corpuscular Volume 101 fL (80-100); Mean Platelet Volume 12.3 fL (9.1-12.4); NEUTROPHILS ABSOLUTE AUTO 8.04 K/mm3 (1.96-9.15); NEUTROPHILS PERCENT AUTO 76 % (41-73); Platelet Count 195 K/mm3 (150-400); RDW Coefficient Variation 15.2 % (11.7-14.2); RDW Standard Deviation 55.8 fL (35.1-46.3); Red Blood Cell Count 4.33 M/mm3 (4.30-5.90); White Blood Cell Count 10.57 K/mm3 (4.00-11.30)
[2022-08-15 14:33] LABS: Albumin, Blood 3.7 g/dL (3.4-5.0); Bilirubin, Total 1.6 mg/dL (0.1-1.0); Bun/Creatinine Ratio 21.9 (12.0-20.0); Calcium, Blood 9.4 mg/dL (8.5-10.1); Creatinine, Blood 1.14 mg/dL (0.60-1.20); Globulin, Blood 3.6 g/dL (2.2-4.0); Total Protein, Blood 7.3 g/dL (6.4-8.2)
[2022-08-15] MEDS ORDERED: ELIQUIS2.5 MG PO (15:32)
[2022-08-15 15:48] LABS: Digoxin (Lanoxin) 0.07 ug/mL (0.80-2.00)
--- NOTE | 2022-08-15 16:30 | NUR ---
Admission: Report recieved from [facility] ED RN. Patient arrived to [facility] [place] [place] [facility] via gurney and was able to ambulate to the bed. He is alert and oriented x3. He reports at home he started to have some bloody emesis and cramping thus he decieded to come to the emergency department. He states he usually ambulates with a cane at home. He reports he is having some mild epigastric pain he rates at a 4/10. HR afib in the low 100s-115. Cardizem gtt infusing at 10 mg/hr, increased to 15 mg/hr for better rate control. LS DIM T/O, the patient seems very SOB. He is only able to get out about 3-4 words before he has to take a breath. Patient states this is new. Biox is mid 90s on RA. BT hypoactive. Patients LLE cool and dusky, attempted to find a doppler pedal pulse, unsuccessful. I was able to get a post-tibial pulse with doppler. Right LE is warm and pink, doppler pedal pulse faint. Patient has a couple of venous ulcers on the outside of his feet, he states these are chronic and he was due to establish with the wound clinic tomorrow. Patient is oriented to room and call light.
--- NOTE | 2022-08-15 17:30 | NUR ---
Update: MD called to notify him regarding pts respiratory status and the absent pedal pulse on the left. See new orders. Patient is resting comfortably at this time. Call light in reach.
[2022-08-15] MEDS ORDERED: TIZA4 PO (17:49)
[2022-08-15] MEDS ORDERED: TRAZ50 PO ×2 (17:50)
--- NOTE | 2022-08-15 19:35 | NUR ---
Update: Report given to Tatyana MARRUFO RN to assume care.
[2022-08-15 20:13] LABS: Hematocrit 41.2 % (37.0-53.0); Hemoglobin 13.7 g/dL (13.5-17.5)
[2022-08-15 20:14] VITALS: BP 123/82
[2022-08-15 20:17] LABS: Base Excess Venous -0.7 mmol/L; Bicarbonate Venous 23.3 mmol/L (24.0-30.0); PCO2 Venous 44.3 mmHg (38-42); pH Blood Venous 7.36 (7.34-7.37)
[2022-08-15 23:38] VITALS: BP 142/89
[2022-08-16] VITALS (12 sets, daily range): BP systolic 109–148; BP diastolic 72–103
[2022-08-16 04:13] LABS: Hemoglobin 13.3 g/dL (13.5-17.5); Mean Corpuscular HGB 33.7 pg (26.0-34.0); Mean Corpuscular HGB Conc 34.1 g/dL (31.5-36.5); Mean Corpuscular Volume 99 fL (80-100); Mean Platelet Volume 12.2 fL (9.1-12.4); Platelet Count 192 K/mm3 (150-400); RDW Coefficient Variation 14.9 % (11.7-14.2); RDW Standard Deviation 53.5 fL (35.1-46.3); Red Blood Cell Count 3.95 M/mm3 (4.30-5.90); White Blood Cell Count 9.31 K/mm3 (4.00-11.30)
[2022-08-16 04:38] LABS: Bun/Creatinine Ratio 32.5 (12.0-20.0); Calcium, Blood 8.8 mg/dL (8.5-10.1); Creatinine, Blood 0.83 mg/dL (0.60-1.20); Magnesium, Blood 1.7 mg/dL (1.6-2.4); Potassium, Blood 4.6 mmol/L (3.5-5.5)
--- NOTE | 2022-08-16 05:46 | NUR ---
SHIFT SUMMARY PT IS A&OX4, ON ROOM AIR, 1P SBA W/ CANE OR FWW (BATHROOM PRIVILEGES), AND CALLS APPROPRIATELY. THE PT HAS CARDIZEM INFUSING AND HAS BEEN TITRATED T/O THE SHIFT, SEE EMAR FOR MORE DETAILS. HE HAS NS RUNNING AT 50ML/HR FOR 1L. HR AFIB 80 S-120 S. PT HAS NO COMPLAINTS. SEE NOTES FOR ANY UPDATES.
--- NOTE | 2022-08-16 12:30 | NUR ---
PT SLEEPING IN ROOM. VITALS TAKEN.
--- NOTE | 2022-08-16 14:00 | NUR ---
WOUND CARE WOUND PHOTOS AND ASSESSMENTS IN HARD CHART. PT WITH UNCLASSIFIABLE ATERIAL ULCERS TO L MALLEOLUS, FIFTH TOE, AND R LATERAL FOOT. ALL THREE WITH STABLE CRUST. WOULD RECOMMEND KEEPING CLEAN AND DRY. PAINT DAILY WITH BETADINE AND OFFLOAD
--- NOTE | 2022-08-16 16:33 | NUR ---
CONTACTED DR PER PT REQUEST FOR A TOPICAL DICLOFENAC NSAID MED. DR STATED THAT THE MED WOULD BE FINE TO USE IF IT IS ONLY THE TOPICAL MED. CONTACTED PHARMACY, MED NOT AVAILABLE.
--- NOTE | 2022-08-16 17:37 | NUR ---
SHIFT SUMMARY PT A/OX4 AND COOPERATIVE OF CARE. PT REMAINED A-FIB RANGING 90-120'S BPM THROUGHOUT SHIFT. CARDIZEM GTT INCREASED TO 15MG/HR IN ORDER TO KEEP HR 110 AND BELOW PER ORDER. PT BP'S ELEVATED DURING SHIFT, DR SINGH. GI CONSULT CALLED INYOLANDA TO SEE PT SOON. OTHER VSS THROUGHOUT SHIFT WITH O2 SATS IN THE 90'S ON RA. NO REPORT OF CHEST PAIN/PRESSURE THROUGHOUT SHIFT. NO REPORT OF SOB/DYSPNEA THROUGHOUT SHIFT. PT CONSTANTLY SITS AT EDGE OF BED AND USES URINAL ON HIS OWN. PT CLEAR LIQUID DIET PER YOLANDA. PT REPORTED PAIN OF FEET, TREATED PER EMAR.
--- NOTE | 2022-08-16 20:35 | NUR ---
ASSUMPTION OF CARE THIS RN ASSUMED CARE OF PATIENT AT 1900. REPORT TAKEN FROM GUSTAVO RN AT BEDSIDE. PATIENT ALERT AND ORIENTED FULLY AND ABLE TO MAKE NEEDS KNOWN. AFIB NOTED ON MONITOR WITH HR 90-120'S AT SHIFT CHANGE. DILT GTT AT 15MG/HR; TITRATING PER ORDER. BP STABLE WITH SBP 120'S. AFEBRILE. DENIES CHEST PAIN/PRESSURE. DENIES ABD PAIN, HEMATEMESIS, OR BLACK/BLOODY STOOLS. ON CLEAR LIQUID DIET. ON RA WITH SPO2 >92%. NO LEFT PEDAL PULSE; MD AWARE. TIBIAL PULSE MARKED ON LEFT LEG, AND PEDAL PULSE MARKED ON RIGHT LEG. LEFT LEG NOTED TO BE RED AND WARM TO TOUCH. PATIENT REPORTS OCCASIONAL PAIN IN BILATERAL FEET, BUT CURRENTLY DENIES ALL PAIN. ABLE TO REPOSITION SELF IN BED AND USES URINAL INDEPENDENTLY. BED IN LOWEST POSITION AND CALL LIGHT WITHIN REACH.
[2022-08-17] VITALS (9 sets, daily range): BP systolic 109–148; BP diastolic 75–108
[2022-08-17 03:47] LABS: Hematocrit 36.9 % (37.0-53.0); Hemoglobin 12.5 g/dL (13.5-17.5); Mean Corpuscular HGB 33.2 pg (26.0-34.0); Mean Corpuscular HGB Conc 33.9 g/dL (31.5-36.5); Mean Corpuscular Volume 98 fL (80-100); Mean Platelet Volume 11.7 fL (9.1-12.4); Platelet Count 170 K/mm3 (150-400); RDW Coefficient Variation 14.6 % (11.7-14.2); RDW Standard Deviation 52.5 fL (35.1-46.3); Red Blood Cell Count 3.77 M/mm3 (4.30-5.90); White Blood Cell Count 9.41 K/mm3 (4.00-11.30)
--- NOTE | 2022-08-17 04:29 | NUR ---
SHIFT SUMMARY PATIENT CONTINUES TO BE ON DILT GTT THROUGHOUT THIS SHIFT; TITRATED TO 20MG/HR FOR HR MAINTAINING IN THE 120'S THIS AM. BP REMAINS STABLE WITH SBP 120-130'S. AFIB WITH HR RANGING FROM 80-130'S WHILE AT REST. AFEBRILE. SPO2 >92% ON RA. DENIES SOB, WHEEZING NOTED IN UPPER LOBES. NONPRODUCTIVE COUGH. DENIES CHEST PAIN/PRESSURE THROUGHOUT THIS SHIFT. MEDICATED FOR ANXIETY THIS AM. NO CHANGES TO LLE, SEE ASSESSMENT AND PREVIOUS NOTE. PT CONTINUES TO HAVE OCCASIONAL RUNS OF VTACH NOTED ON MONITOR WITH RUNS RANGING FROM 5-7 BEAT RUNS. MD AWARE. CALLING APPROPRIATELY. BED IN LOWEST POSITION AND CALL LIGHT WITHIN REACH. THIS RN WILL CONTINUE TO MONITOR UNTIL SHIFT CHANGE AT 0700.
--- NOTE | 2022-08-17 18:06 | NUR ---
ASSUMED PT CARE AT 0700 THIS AM. PT A&O X4 WITH SPO2 >92% W/ RA. DILTIAZEM GTT INFUSED AT 20 MG/MIN FOR MOST OF THE DAY W HR OF 90S-140'S, PT'S HOME PO MEDS ORDERED AND D/C DILTIAZEM. HR MAINTAINS 60-70S WITH AFIB. PT SCHEDULED FOR EGD FOR SATURDAY, August AND DIET ORDERS REMAIN CLEAR LIQUIDS W/O REDS. PT REMAINS AT REST IN BED, IS A ONE PERSON ASSIST, AND UTILIZES CALL LIGHT APPROPRIATELY. CALL LIGHT REMAINS WITHIN REACH, WILL CONTINUE TO MONITOR AND GIVE NOC RN BEDSIDE REPORT.
[2022-08-18 03:58] LABS: Hematocrit 35.5 % (37.0-53.0); Mean Corpuscular HGB Conc 33.8 g/dL (31.5-36.5); Mean Corpuscular Volume 98 fL (80-100); Mean Platelet Volume 11.7 fL (9.1-12.4); Platelet Count 155 K/mm3 (150-400); RDW Coefficient Variation 14.6 % (11.7-14.2); RDW Standard Deviation 52.5 fL (35.1-46.3); Red Blood Cell Count 3.64 M/mm3 (4.30-5.90); White Blood Cell Count 7.01 K/mm3 (4.00-11.30)
[2022-08-18 04:44] VITALS: BP 140/94
--- NOTE | 2022-08-18 05:14 | NUR ---
SHIFT SUMMARY THIS RN ASSUMED CARE OF PATIENT AT 1900. NO ACUTE CHANGES OVERNIGHT. NO REPORTED N/V, ABD PAIN, OR BLOODY/DARK STOOLS. PATIENT ALERT AND ORIENTED FULLY. ABLE TO MAKE NEEDS KNOWN. AFIB NOTED WITH HR 70-90'S DURING THIS SHIFT. DENIES CHEST PAIN/PRESSURE. BP STABLE. AFEBRILE. SPO2 >92% ON RA. BED IN LOWEST POSITION AND CALL LIGHT WITHIN REACH. THIS RN WILL CONTINUE TO MONITOR UNTIL SHIFT CHANGE AT 0700.
[2022-08-18 10:50] VITALS: BP 111/74
[2022-08-18 11:42] VITALS: BP 97/72
--- NOTE | 2022-08-18 12:49 | NUR ---
ASSUMED CARE OF PT AT 0700. CHANGED SOILED DRESSING ON R LATERAL FOOT. PT TOLERATED WELL. CALL LIGHT WITHIN REACH, WILL CONTINUE TO MONITOR.
[2022-08-18 16:30] VITALS: BP 135/94
--- NOTE | 2022-08-18 17:54 | NUR ---
SHIFT NOTE. ASSUMED PT CARE AT 0700 THIS AM. PT IS A&O X4 AND SPO2 REMAINS >92% ON RA. DRESSING CHANGE OF THE R LATERAL FOOT THIS AM AND HEATING PACKS UTILIZED FOR COMFORT DURING THE DAY. PT SPOKE TO DR GUERRERO AND CONFIRMED INTENTION TO UNDERGO EGD PROCEDURE. PT IS SCHEDULED FOR EGD TOMORROW, FRIDAY 08/18. PT WILL REMAIN NPO AT MIDNIGHT TO PREPARE. NO ACUTE CHANGES THIS AFTERNOON. CALL LIGHT REMAINS WITHIN REACH AND PT UTILIZES IT APPROPRIATELY. WILL CONTINUE TO MONITOR AND GIVE BEDSIDE REPORT TO ONCOMING NOC RN.
[2022-08-18 20:42] VITALS: BP 137/101
[2022-08-19] VITALS (8 sets, daily range): BP systolic 95–153; BP diastolic 71–105
[2022-08-19 03:26] LABS: Hematocrit 37.7 % (37.0-53.0); Hemoglobin 12.5 g/dL (13.5-17.5); Mean Corpuscular HGB 32.7 pg (26.0-34.0); Mean Corpuscular HGB Conc 33.2 g/dL (31.5-36.5); Mean Corpuscular Volume 99 fL (80-100); Mean Platelet Volume 11.5 fL (9.1-12.4); Platelet Count 187 K/mm3 (150-400); RDW Coefficient Variation 15.2 % (11.7-14.2); RDW Standard Deviation 55.1 fL (35.1-46.3); Red Blood Cell Count 3.82 M/mm3 (4.30-5.90); White Blood Cell Count 7.37 K/mm3 (4.00-11.30)
[2022-08-19 03:46] LABS: Calcium, Blood 8.4 mg/dL (8.5-10.1); Creatinine, Blood 0.8 mg/dL (0.60-1.20)
--- NOTE | 2022-08-19 04:52 | NUR ---
SHIFT SUMMARY NO ACUTE CHANGES OVERNIGHT. PT CONTINUES TO BE IN AFIB WITH HR RANGING FROM 80-120'S THROUGHOUT THIS SHIFT; MAINTAINING MORE IN THE 100-110'S. PATIENT HAS BEEN ANXIOUS THROUGHOUT THIS SHIFT WITH REPORTED PAIN IN BILATERAL FEET THAT WAS NOT RELIEVED BY TYLENOL; THIS RN GAVE IV MORPHINE PER EMAR. PATIENT REPORTING BEING ANXIOUS FOR PROCEDURE TODAY. THIS RN TALKED TO PATIENT ABOUT PROCEDURE AND ATTEMPTED TO RELIEVE ANXIETY. PATIENT REPORTED IMPROVEMENT AFTER ADMINISTRATION OF ATIVAN; SEE EMAR. PATIENT CALLING APPROPRIATELY. ALL OTHER VITALS STABLE. PATIENT HAS BEEN NPO SINCE MIDNIGHT. BED IN LOWEST POSITION AND CALL LIGHT WITHIN REACH. THIS RN WILL CONTINUE TO MONITOR UNTIL SHIFT CHANGE AT 0700.
--- NOTE | 2022-08-19 18:07 | NUR ---
SHIFT NOTE. PT SPO2>92% W ROOM AIR AND RHYTHM HAS BEEN AFIB W PVCS T/O THE DAY. PT MEDICATED WITH 75 MG METOPROLOL FOR MOST OF THE DAY AND HR SUSTAINED 110'S-140'S. PT EGD CANCELLED DUE TO HR, DR PARDO NOTIFIED, AND PERSCRIBED PO CARDIZEM. PT FOOT PAIN CONTROLLED WITH HEAT/ICE MANA WELLAS OXYCODONE. PT DIET CHANGED TO REG DURING AFTERNOON, WILL BE NPO AT MIDNIGHT FOR ANTICIPATED EGD TOMORROW, 08/20. CALL LIGHT IS WITHIN REACH AND UTILIZED WELL. WILL CONTINUE TO MONITOR AND GIVE BEDSIDE REPORT TO ONCOMING NOC RN.
[2022-08-20] VITALS (7 sets, daily range): BP systolic 112–138; BP diastolic 77–96
--- NOTE | 2022-08-20 04:40 | NUR ---
SHIFT SUMMARY PT IS A/Ox4 AND COOPERATIVE WITH CARE PROVIDED BY MEMBERS OF STAFF. ANSWERS QUESTIONS APPROPRIATELY AND ABLE TO MAKE HIS NEEDS KNOWN. NO ACUTE EVENTS OVERNIGHT, PT ABLE TO GET INTERMITTENT EPISODES OF SLEEP T/O MOST THE SHIFT. CARDIAC LORENZO, REMAINS IN AFIB 100-120'S WITH NO REPORTS OF CP OR PRESSURE. OCCASIONALLY TOUCHES 130'S WHEN MOVING AROUND, BUT DOES NOT SUSTAIN. SBP HAS BEEN STABLE. RESPIRATORY LORENZO, MAINTAINS SPO2 >90% ON RA WITH NO C/O SOB OR DYSPNEA. GI/, NO REPORTS OF NAUSEA/VOMITING T/O MY SHIFT. ABLE TO IND USE URINAL AT BEDSIDE, PRODUCING CLEAR/YELLOW URINE. PT HAS BEEN NPO SINCE MDN FOR EEG SCHEDULED FOR THIS AM. WOUND ON FEET BILAT DRESSED. PT ALSO REPORTS SCHEDULED APPOINTMENT WITH [facility]. INPATIENT WOUND CARE CONSULT ALREADY ORDERED. PAIN HAS BEEN MANAGED ORDERED VIA EMAR. NO NEW ORDERS AT THIS TIME, WILL REPORT TO ONCOMING RN. KEYONA ELIZABETH OF THIS NOTE.
--- NOTE | 2022-08-20 08:52 | NUR ---
AM NOTE: PT ALERT AND ORIENTED X4. ABLE TO ANSWER QUESTIONS AND MAKE NEEDS KNOWN. PT SBP 114 WITH HR 120'S WITH NO C/O CHEST PAIN/PRESSURE. DR. GUERRERO CALLED THIS MORNING AND PLANS TO WAIT FOR THE SCOPE UNTIL PT HR DECREASES. PT C/O PAIN T/O BOTH LOWER LEGS AND FEET. MEDICATED PER MAR WITH RELIEF. PT ABLE TO TOLERATE BREAKFAST WITH NO C/O N/V. DR. PARDO INCREASED DOSE OF METOPROLOL THIS AM. PT ABLE TO AMBULATE TO THE BATHROOM WITH A MINIMAL ASSIST. WILL CONTINUE TO MONITOR T/O THE SHIFT.
--- NOTE | 2022-08-20 17:52 | NUR ---
SHIFT SUMMARY: PT REMAINED ALERT AND ORIENTED X4 T/O THE SHIFT. PT ABLE TO COMMUNICATE NEEDS AND IS PLEASANT WITH THE STAFF. PT ABLE TO AMBULATE TO THE SHOWER TODAY WITH ASSISTANCE. PT HR CONTINUED TO REMAIN ELEVATED T/O THE SHIFT WITH A RATE IN THE 110'S-150'S WITH REST AND EXERTION. DR. PARDO PUT IN ORDERS FOR PT TO RECEIVE TWO DOSES OF DIGOXIN WITH THE LATEST DOSE GIVEN AT 1700. PT HR NOW IN THE 110'S. SBP 120'S WITH NO C/O CHEST PAIN, PRESSURE OR SOB. PER DR. GUERRERO PT WILL RECEIVE SCOPE WHEN HR IS STABLE. WILL CONTINUE TO MONITOR AND GIVE REPORT TO ONCOMING [facility] SHIFT RN.
--- NOTE | 2022-08-20 18:31 | NUR ---
RN NOTE: AGREED [facility] NURSING STUDENTS NOTES AND DOCUMENTATION. PER TELE PT HAD 4 EPISODES OF 4-5 BEATS OF LEFT BUNDLE BRUNCH BLOCK THAT LOOKS LIKE VTACH IN TELE VERIFIED WITH OTHER NURSE JACK SPENCER. STRIPS IN THE CHART, PT HAS BEEN ASYMPTOMATIC, PT WAS GIVEN 2 DOSES OF DIG 0.25IV RATE NOW 100-115'S. PT RESTING IN BED THE REST OF THE VITALS STABLE. WILL CONTINUE TO MONITOR
[2022-08-21] VITALS (9 sets, daily range): BP systolic 103–168; BP diastolic 59–107
[2022-08-21 03:25] LABS: Hematocrit 40.2 % (37.0-53.0); Hemoglobin 13.4 g/dL (13.5-17.5); Mean Corpuscular HGB 33.2 pg (26.0-34.0); Mean Corpuscular HGB Conc 33.3 g/dL (31.5-36.5); Mean Corpuscular Volume 100 fL (80-100); Mean Platelet Volume 11.8 fL (9.1-12.4); Platelet Count 193 K/mm3 (150-400); RDW Coefficient Variation 14.8 % (11.7-14.2); RDW Standard Deviation 54.1 fL (35.1-46.3); Red Blood Cell Count 4.04 M/mm3 (4.30-5.90); White Blood Cell Count 7.92 K/mm3 (4.00-11.30)
--- NOTE | 2022-08-21 05:31 | NUR ---
SHIFT SUMMARY PT A&Ox4, CALLS AND COMMUNICATES NEEDS APPROPRIATELY. REPORTED FEELING ANXIOUS ABOUT PROCEDURES TWICE THIS SHIFT, MEDICATED PER EMAR. BP STABLE, DENIES CP/PRESSURE. AFIB 100-130's AT START OF SHIFT, MEDICATED PER EMAR. AT THIS TIME HR IS 70-100's, AFIB. PT WITH ONE 2.5sec PAUSE, ASYMPTOMATIC. SpO2> 92% RA, DENIES SOB. NO S/S OF BLEEDING. MANAGED PT's PAIN PER EMAR. PT CONTINENT OF URINE, USES URINAL AT BEDSIDE IND. NO BM THIS SHIFT. NO OTHER EVENTS, WILL REPORT TO ONCOMING RN.
[2022-08-21 05:52] LABS: Bun/Creatinine Ratio 16.1 (12.0-20.0); Calcium, Blood 8.5 mg/dL (8.5-10.1); Creatinine, Blood 0.93 mg/dL (0.60-1.20); Potassium, Blood 4.4 mmol/L (3.5-5.5)
--- NOTE | 2022-08-21 07:30 | NUR ---
Received report from Noc RN. Patient was sleeping when entering for assessment and awakend easily with verbal stimuli. He was alert and oriented and able to communicate all needs and opinions. Patient is on RA and sats >90%. He is a SBA with transfer r/t diagnosis. He is NPO until Dr Lazo consult. He has 20ga bilateral hand IV's and are flushed and SL. See VS EMR
--- NOTE | 2022-08-21 11:00 | NUR ---
Dr Violet brownas been called and consult was called on admit. Patient continues to be NPO until consult. Dr Mccarthy has been by and assessed done no new orders.. Patient has been resting and is very unhappy about being NPO. He remains SBA with transfers. He tolerated med with water. He continues A-Fib 90-110's. He remains on RA and sats >90%
--- NOTE | 2022-08-21 13:50 | NUR ---
Patient is lying in bed and alert. He immediately tells me about how frustrated he is about not being able to eat due to waiting for a surgery. I explain about triage and already scheduled surgeries. I conduct a life review getting him focued on other topices. Patient talks at length about his family unit complications, his tense living conditions and his many yrs as a professional musician. He is passionate about music and talks with great enthusiasm. I reinforce helpful attitudes and perspectives, encouraged self-care, and provided de-escalation and containment and listened empathically. Patient responded well and showed signs of reduced stress. I will continue to remain available to patient and family.
--- NOTE | 2022-08-21 14:30 | NUR ---
Patient awaiting to go to oil laboratory analyst since Dr Lazo came and spoke with keesha. He is somewhat independent in room and is very hungry from being NPO. He has been resting most of day. Jd Zelaya for about an hour.
--- NOTE | 2022-08-21 18:38 | NUR ---
Patient has been back from medical laboratory technicians and was not following commands and was needing constant monitoringand found him out of bed one time and had serious talk and he has remained in bed since. left groin site have held pressure for 10 minutes once just because looke loke small hematoma but was mostly from prior procedure. Site is currently flat with small bump and no bleeding or oozing. he has been in bed sitting up for the last hour eating dinner and doing well with direction and will call when needs something. Dr Herron by to assess going to medical laboratory technicians but rate is a problem for anesthesia and will continue to discuss for procedure.
[2022-08-22] VITALS (7 sets, daily range): BP systolic 99–134; BP diastolic 63–89
--- NOTE | 2022-08-22 05:40 | NUR ---
SHIFT SUMMARY PT REMAINS A/Ox4 AND COOPERATIVE WITH CARE PROVIDED BY MEMBERS OF STAFF. ANSWERS QUESTIONS APPROPRIATELY AND ABLE TO MAKE HIS NEEDS KNOWN. NO ACUTE EVENTS OVERNIGHT FOR PT WAS ABLE TO SLEEP T/O MAJORITY OF THE SHIFT. CARDIAC LORENZO, REMAINS IN AFIB RANGING 80-110'S. NO REPORTS OF CP OR PRESSURE T/O THE NIGHT. SBP REMAINS SOFT BUT STABLE 90-100. PER TELEMETRY REPORT, PT HAD INTERMITTENT EPISODES OF 2 SEC PAUSES. PT IS ASYMPTOMATIC OF THESE EVENTS. RESPIRATORY LORENZO, MAINTAINS SPO2 >94% ON RA WITH NO REPORTS OF SOB OR DYSPNEA OF THIS NOTE. ABLE TO IND. VOID INTO URINAL AND IS 1A-SBA TO BSC. PAIN HAS BEEN ADEQUATELY MANAGED ORDERED VIA EMAR. UNDERWENT PROCEDURE WITH DR. Mckinney 08/21/22. RIGHT GROIN SITE NONTENDER, WITH SMALL HEMATOMA NOTE. HEMATOMA HAS NOT GROIN SINCE START OF SHIFT. NO NEW ORDERS AT THIS TIME, WILL REPORT TO ONCOMING RN. GLENN, KEYONA OF THIS NOTE
--- NOTE | 2022-08-22 09:41 | NUR ---
AM NOTE: PATIENT ALERT AND ORIENTED X4. IN 10 PAIN DUE TO RECENT REVASC. COMPLAINS OF PAIN IN BILATERAL LOWER EXTREMITIES/FEET. NO SWELLING NOTED TO FEET, FAINT PEDAL PULSES PALPATED. LEFT LATERAL ANKLE AND 5TH TOE WOUNDS WELL RIGHT LATERAL FOOT WOUNDS. MEDICATED PER EMAR WITH GOOD PAIN RELIEF, PATIENT REPORTS PAIN AT 4/10 POST MORPHINE. LEFT GROIN SITE POST 6/[address] GUDINO, MODERATE SIZED HEMATOMA THAT REMAINS UNCHANGED THROUGHOUT THE NIGHT AND THIS MORNING. NO NEW BLEEDING NOTED. BRUISING SURROUNDING SITE. PATIENT EDUCATED ON GROIN PRECAUTIONS. ON ROOM AIR SATING ABOVE 95%. LUNGS SOUNDS CLEAR AND DIM IN BASES. DENIES SOB/COUGH. TELE SHOWING AFIB WITH HR 70-110'S. BP STABLE. DENIES CHEST PAIN/PRESSURE/PALPITATIONS. NO SIGNS OF EDEMA NOTED. DENIES ABDOMINAL PAIN/NAUSEA. NPO AT THIS TIME PENDING EGD. CALL PLACED TO DR. STYLES THIS AM, WAITING FOR CALL BACK. NO SIGNS OF BLEEDING. VOIDING WNL. BED ALARM IN PLACE. CALL LIGHT IN REACH.
--- NOTE | 2022-08-22 13:07 | NUR ---
PATIENT HAD BRIED EPISODE OF BRADYING DOWN TO 34. NO SYMPTOMS AND NONSUSTAINED. DR. PARDO CALLED TO UPDATE. PLAN TO CHECK DIGOXIN LEVELS.
[2022-08-22 14:07] LABS: Digoxin (Lanoxin) 1.46 ug/mL (0.80-2.00)
--- NOTE | 2022-08-22 14:12 | NUR ---
CASEMANAGEMENT IN TO VISIT PATIENT WELL SPIRITUAL CARE.
--- NOTE | 2022-08-22 16:05 | NUR ---
Patient is lying in bed and alert. 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 So I brought my guitar up to him so he could play. He played guitar and sang country and rock songs for 45 minutes, all from memory. He is very talented and it is clear that he was very good at what he did. We also discussed his family unit complications, his background with the [employer] jehovah's witness and the more personal and quiet spiritual connection he has with Yasmany currently. I provide companionship, empathic listening and prayer. Patient responded well and showed signs of deep reflection and movement toward greater inner peace. I will cotninue to remain available to patient and family.
--- NOTE | 2022-08-22 18:07 | NUR ---
SHIFT SUMMARY: NO ACUTE CHANGES. PATIENT REMAINS ALERT AND ORIENTED. ON ROOM AIR. REMAINS AFIB WITH HR 70-110'S. BP STABLE. EATING WNL. NO SIGNS OF BLEEDING. GROIN SITE REMAINS UNCHANGED. INTERMIT BLE LEG PAIN, MEDICATED PER EMAR. EATING DINNER AT THIS TIME.
--- NOTE | 2022-08-22 18:29 | NUR ---
PLAN FOR EGD TOMORROW AFTERNOON. PATIENT OKAY TO HAVE CLEAR LIQUID ON [address] STYLES.
[2022-08-23 03:39] VITALS: BP 117/71
[2022-08-23 04:35] LABS: Hematocrit 36.9 % (37.0-53.0); Hemoglobin 12.2 g/dL (13.5-17.5); Mean Corpuscular HGB Conc 33.1 g/dL (31.5-36.5); Mean Corpuscular Volume 100 fL (80-100); Platelet Count 162 K/mm3 (150-400); RDW Coefficient Variation 14.3 % (11.7-14.2); RDW Standard Deviation 52.5 fL (35.1-46.3)
[2022-08-23 05:13] LABS: Bun/Creatinine Ratio 17.6 (12.0-20.0); Calcium, Blood 8.3 mg/dL (8.5-10.1); Creatinine, Blood 0.97 mg/dL (0.60-1.20); Potassium, Blood 4.3 mmol/L (3.5-5.5)
--- NOTE | 2022-08-23 05:48 | NUR ---
SHIFT SUMMARY ASSUMED CARE OF PT AT 1900. PT IS A/OX4. HEART SOUNDS IRREGULAR. LUNG SOUNDS CLEAR. PT ONLY COMPLAINT LAST NIGHT WAS OF THE PAIN IN HIS FEET, MEDICATED PER EMAR. PT CLEAR LIQUIDS AT MIDNOC.
[2022-08-23 08:20] VITALS: BP 139/93
[2022-08-23 12:04] VITALS: BP 134/94
--- NOTE | 2022-08-23 15:38 | NUR ---
Pt taken down to day surgery for EGD, will await return.
[2022-08-23 15:42] VITALS: BP 144/84
--- NOTE | 2022-08-23 16:05 | NUR ---
Spiritual care visit conducted. Patient is sitting on the EOB and alert. He tells me that he will have a procedure today and that he is nervous. We talk about his life, I provide music therapey and also allow patient to play my guitar and sing. We talk about ways to remain at peace and I provide prayer. Patient responded well and showed signs of greater peace and states that he feels "stronger now" and ready for the procedure. I will continue to remain available to patient and family
--- NOTE | 2022-08-23 16:46 | NUR ---
08/23/22 1646 Sandeep Lynn History, Chart, Medications and Allergies reviewed before start of procedure.MONITOR INTACT WITH CONTINUOUS PULSE OXIMETRY, CONTINUOUS END TITAL CO2, AND INTERMITTENT BLOOD PRESSURE.3-LEAD EKG REVIEWED WITH PHYSICIAN PRIOR TO START OF PROCEDURE.O2 VIA POM INTACT THROUGHOUT SEDATION/PROCEDURE.See Anesthesia record.
[2022-08-23 17:21] VITALS: BP 142/80
--- NOTE | 2022-08-23 17:41 | NUR ---
SHIFT SUMMARY PT A/OX4 AND COOPERATIVE OF CARE. PT HR A-FIB RANGING 80-110'S. PT NPO AFTER BREAKFAST FOR EGD. EGD DONE, MASS FOUND, SEE PRECEDURE NOTES. PT 02 SATS AT 89 UPON ARRIVAL FROM PROCEDURE. PT SATS IN THE 90'S ON RA BEFORE PRCEDURE, NO REPORT OF SOB/DYSPNEA. OTHER VSS THROUGHOUT SHIFT. NO REPORT OF CHEST PAIN/PRESSURE THROUGHOUT SHIFT. PT ANXIOUS ABOUT POSSIBLE DIAGNOSIS OF CANCER AFTER EGD AND BIOPSY. PT TO REMAIN CLEAR LIQUID DIET DUE TO SIZE OF MASS PER ORDER.
[2022-08-23 19:59] VITALS: BP 148/85
[2022-08-24] VITALS (7 sets, daily range): BP systolic 95–141; BP diastolic 50–88
--- NOTE | 2022-08-24 06:27 | NUR ---
SHIFT SUMMARY ASSUMED CARE OF PT AT 1900. PT WAS A/OX4 UNTIL HE RECEIVED PO ATIVAN FOR ANXITEY. AT AROUND 2330 PT BECAME AGITATED EVIDENCE BY YELLING AT STAFF WHEN THEY HELP, PUSHING AWAY HANDS, AND SAYING HE CAN DO IT HIMSELF. PT ALSO EXPIRIENCED INCONTINENCE MULTIPLE TIMES. PT WAS ABLE TO REMEMBER HE HAD A PROCEDURE BUT COULD NOT ELABORATE. PT KNEW SELF AND WHERE HE WAS BUT HAD A HARD TIME REMEBERING WORDS. PT VSS. PT YELLED/CURSED OUT LOUD AT STAFF WHEN HIS FEET WERE TOUCHED IN ATTEPMT TO GET PT BACK IN BED. CHARGE NURSE MADE AWARE. PT FINALLY SLEPT AT AROUND 0400. AT 0600, PT WAS GIVEN MORNING MED AND WAS MORE CALM AND RECEPTIVE TOWARDS CARE.
--- NOTE | 2022-08-24 10:36 | NUR ---
Spiritual Care Visit. Pt. is resting in bed but reponds when I enter the room. Pt. displays evidence of being withdrawn but welcomes my visit. Pt. has an on-going spiritual care connection with Chaplain Miles. Communicated to Pt. on behalf of Chaplain Miles. Pt. verbalized appreciation for the Spiritual care he has received. We considered matters of his serious diagnosis, and pastoral care is given. Pt. verbalized fondly them significance of having the guitar played for him on a previous visit. Prayed with Pt. Pt. verbalized gratitude for the spiritual care visit and also verbalized that he will contact Chaplain Miles after discharge.
--- NOTE | 2022-08-24 16:05 | NUR ---
TRANSFER UPDATE REPORT GIVEN TO VÍCTOR MATTHEWS RN AT [id number].
--- NOTE | 2022-08-24 18:39 | NUR ---
PATIENT IS ALERT AND ORIENTED AND COOPERATIVE WITH CARE. TRANSFERRED TO MEDICAL FLOOR THIS AFTERNOON. C/O BLE PAIN. PATIENT SAT UP IN THE RECLINER FOR AN HOUR AND THEN TRANSFERRED TO BED. ON RA. WILL CONTINUE TO MONITOR
--- NOTE | 2022-08-24 18:43 | NUR ---
Pt awoke from nap wanted to talk. He is very anxious and upset about new diagnaosis. pt live at [place] on his own. has friends who help. Presents as starting to decline. He is oriented but repeats emily self over and over. He is at ghreat risk for failure to thrive. Abdi follow wup with [facility] team and plan of care and support.
[2022-08-25 04:25] VITALS: BP 107/67
[2022-08-25 06:24] LABS: Hematocrit 41.4 % (37.0-53.0); Hemoglobin 14.4 g/dL (13.5-17.5); Mean Corpuscular HGB 33.8 pg (26.0-34.0); Mean Corpuscular HGB Conc 34.8 g/dL (31.5-36.5); Mean Corpuscular Volume 97 fL (80-100); Mean Platelet Volume 11.2 fL (9.1-12.4); Platelet Count 171 K/mm3 (150-400); RDW Coefficient Variation 14.3 % (11.7-14.2); RDW Standard Deviation 51.2 fL (35.1-46.3); Red Blood Cell Count 4.26 M/mm3 (4.30-5.90); White Blood Cell Count 7.82 K/mm3 (4.00-11.30)
[2022-08-25 06:52] LABS: Bun/Creatinine Ratio 17.9 (12.0-20.0); Calcium, Blood 8.6 mg/dL (8.5-10.1); Creatinine, Blood 0.78 mg/dL (0.60-1.20); Potassium, Blood 3.8 mmol/L (3.5-5.5)
[2022-08-25 08:21] VITALS: BP 121/78
[2022-08-25 15:06] VITALS: BP 122/74
--- NOTE | 2022-08-25 16:51 | NUR ---
SHIFT SUMMARY NO ACUTE CHANGES NOTED DURING SHIFT. PT ALERT AND ORIENTED, CALLS APPROPRIATELY. PT REMAINS ON RA, SBA WITH FWW. WOUNDS TO FEET CLEANED AND DRESSED PER ORDERS. PT MEDICATED WITH PRN MEDICATIONS X 2 DURING SHIFT. WILL CONTINUE TO MONITOR. CALL LIGHT WITHIN REACH.
[2022-08-25] MEDS ORDERED: DILT120 PO ×2 (17:38)
[2022-08-25] MEDS ORDERED: ACET500 PO ×2 (17:38)
[2022-08-25] MEDS ORDERED: DIGOX125 MC1 PO ×2 (17:38)
[2022-08-25] MEDS ORDERED: PANT40 PO ×2 (17:39)
[2022-08-25] MEDS ORDERED: OXAYDO5 M1 PO ×2 (17:39)
--- NOTE | 2022-08-25 18:03 | NUR ---
DISCHARGE SUMMARY DISCHARGE, FOLLOWUP, AND MEDICATION INSTRUCTIONS GIVEN TO PT. PT VOICED COMPLETE UNDERSTANDING AND HAS NO QUESTIONS AT THIS TIME. IV REMOVED WITH CATHETER TIP INTACT. PT AWAITING ARRIVAL OF RIDE. WILL CONTINUE TO MONITOR. CALL LIGHT WITHIN REACH.
== END 2022-08-25 18:21 | disposition home or self-care (01) | DRG 357 ==
LOC: ER 13:13 → PCU 17:45 → MEDS 08-24 16:52
PROVIDERS: Emergency Medicine; Internal Medicine; Student in an Organized Health Care Education/Training Program; ADMIT Internal Medicine
PROC: 047K3DZ Dilation of Right Femoral Artery with Intraluminal Device, Percutaneous Approach (ICD-10-PCS; 2022-08-21)
PROC: 047M3ZZ Dilation of Right Popliteal Artery, Percutaneous Approach (ICD-10-PCS; 2022-08-21)
PROC: 04FK3ZZ Fragmentation of Right Femoral Artery, Percutaneous Approach (ICD-10-PCS; 2022-08-21)
PROC: B41D1ZZ Fluoroscopy of Aorta and Bilateral Lower Extremity Arteries using Low Osmolar Contrast (ICD-10-PCS; 2022-08-21)
PROC: B44HZZZ Ultrasonography of Bilateral Lower Extremity Arteries (ICD-10-PCS; 2022-08-21)
PROC: 0DB38ZX Excision of Lower Esophagus, Via Natural or Artificial Opening Endoscopic, Diagnostic (ICD-10-PCS; principal; 2022-08-23 09:15)
DX: K92.0 Hematemesis (principal); C15.5 Malignant neoplasm of lower third of esophagus; I50.42 Chronic combined systolic (congestive) and diastolic (congestive) heart failure; J96.12 Chronic respiratory failure with hypercapnia; E87.1 Hypo-osmolality and hyponatremia; L97.929 Non-pressure chronic ulcer of unspecified part of left lower leg with unspecified severity; L97.919 Non-pressure chronic ulcer of unspecified part of right lower leg with unspecified severity; I48.21 Permanent atrial fibrillation; K29.40 Chronic atrophic gastritis without bleeding; I70.248 Atherosclerosis of native arteries of left leg with ulceration of other part of lower leg; I70.238 Atherosclerosis of native arteries of right leg with ulceration of other part of lower leg; M79.672 Pain in left foot; M79.671 Pain in right foot; M79.604 Pain in right leg; M79.605 Pain in left leg; I11.0 Hypertensive heart disease with heart failure; J44.9 Chronic obstructive pulmonary disease, unspecified; K22.9 Disease of esophagus, unspecified; K64.8 Other hemorrhoids; F17.210 Nicotine dependence, cigarettes, uncomplicated; F06.4 Anxiety disorder due to known physiological condition; E78.5 Hyperlipidemia, unspecified; K21.9 Gastro-esophageal reflux disease without esophagitis; Z88.8 Allergy status to other drugs, medicaments and biological substances; Z79.899 Other long term (current) drug therapy; Z79.51 Long term (current) use of inhaled steroids; Z79.01 Long term (current) use of anticoagulants; Z86.711 Personal history of pulmonary embolism; Z86.010 Personal history of colon polyps; Z87.19 Personal history of other diseases of the digestive system; Z86.79 Personal history of other diseases of the circulatory system; Z98.890 Other specified postprocedural states; Z95.820 Peripheral vascular angioplasty status with implants and grafts
CPT/HCPCS: 36415; 71045; 71260; 74177; 75625; 75716; 75774; 76937; 80048; 80053; 80162; 82803; 83690; 83735; 84484; 85014; 85018; 85025; 85027; 86850; 86900; 86901; 88305; 93005; 93010; 93306; 94640; 94664; 94760; 94762; 96365; 96366; 96375; 99152; 99153; 99285-25; A9270; C1725; C1760; C1769; C1874; C1887; C1894; C9113; C9602; C9765; J1160; J1644; J2060; J2250; J2270; J2405; J2704; J3010; J7030; J7050; J7120; Q9967

== ENCOUNTER 2022-08-29 20:59 | Inpatient (IN) | payer OTHER ==
[~2022-08-29] VITALS: Ht 182.9 cm; Wt 65.4 kg
[~2022-08-29 20:59] MED LIST changes: +ACET500 PO; +ELIQUIS2.5 MG PO; +OXAYDO5 M1 PO; +PANT40 PO; +TIZA4 PO
[2022-08-29 21:25] LABS: BASOPHILS ABSOLUTE AUTO 0.07 K/mm3 (0.00-0.23); BASOPHILS PERCENT AUTO 0 % (0-2); EOSINOPHILS PERCENT AUTO 0 % (0-6); Hematocrit 41.1 % (37.0-53.0); Hemoglobin 14.2 g/dL (13.5-17.5); IMMATURE GRAN ABSOLUTE AUTO 0.23 K/mm3 (0.00-0.10); IMMATURE GRAN PERCENT AUTO 1 % (0-1); LYMPHOCYTES ABSOLUTE AUTO 0.75 K/mm3 (0.84-5.20); LYMPHOCYTES PERCENT AUTO 4 % (21-46); MONOCYTES ABSOLUTE AUTO 1.27 K/mm3 (0.16-1.47); MONOCYTES PERCENT AUTO 8 % (4-13); Mean Corpuscular HGB 32.8 pg (26.0-34.0); Mean Corpuscular HGB Conc 34.5 g/dL (31.5-36.5); Mean Corpuscular Volume 95 fL (80-100); Mean Platelet Volume 11.7 fL (9.1-12.4); NEUTROPHILS PERCENT AUTO 86 % (41-73); Platelet Count 234 K/mm3 (150-400); RDW Standard Deviation 49.7 fL (35.1-46.3); Red Blood Cell Count 4.33 M/mm3 (4.30-5.90); White Blood Cell Count 17.02 K/mm3 (4.00-11.30)
[2022-08-29 21:54] LABS: Alanine Aminotransfer (ALT/SGP 22 U/L (12-78); Albumin, Blood 2.6 g/dL (3.4-5.0); Albumin/Globulin Ratio 0.6 (0.8-1.8); Alk Phos 103 U/L (50-136); Anion Gap 9 mmol/L (6-16); Aspartate Aminotrans (AST/SGOT 25 U/L (12-37); Bilirubin, Total 0.9 mg/dL (0.1-1.0); Blood Urea Nitrogen 28 mg/dL (8-24); Bun/Creatinine Ratio 39.9 (12.0-20.0); CO2, Blood 26 mmol/L (21-32); Calcium, Blood 9.2 mg/dL (8.5-10.1); Chloride, Blood 91 mmol/L (98-108); Digoxin (Lanoxin) 0.52 ug/mL (0.80-2.00); Glomerular Filtration Rate 95 (60-); Glucose, Blood 166 mg/dL (70-99); Potassium, Blood 4.2 mmol/L (3.5-5.5); Sodium, Blood 126 mmol/L (136-145); Total Protein, Blood 6.6 g/dL (6.4-8.2)
[2022-08-29 23:59] LABS: Source, Urine Clean Catch
[2022-08-30 00:03] LABS: International Normalized Ratio 1.09; Prothrombin Time Results 11.4 Sec (9.7-11.5)
[2022-08-30 00:14] LABS: Bilirubin, Urine Neg (Neg); Blood, Urine 4+ (Neg); Glucose Qualitative, Urine 2+ (Neg); Ketones, Urine 1+ (Neg); Leukocyte Esterase, Urine Neg (Neg); Nitrite, Urine Neg (Neg); Protein, Urine 3+ (Neg); Specific Gravity, Urine 1.015 (1.003-1.022); Urobilinogen, Urine 3+ (Normal)
[2022-08-30 00:38] LABS: Appearance, Urine Hazy (Clear); Color, Urine Yellow (P-Yellow)
[2022-08-30 00:41] LABS: Bacteria Mod /hpf; Granular Casts 0-2 /lpf (0); Hyaline Casts 0-2 /lpf (0-2); Squamous Epithelial Cells Few /hpf (Few)
[2022-08-30 04:01] LABS: BASOPHILS ABSOLUTE AUTO 0.09 K/mm3 (0.00-0.23); BASOPHILS PERCENT AUTO 1 % (0-2); EOSINOPHILS ABSOLUTE AUTO 0.11 K/mm3 (0.00-0.68); EOSINOPHILS PERCENT AUTO 1 % (0-6); Hematocrit 40.7 % (37.0-53.0); Hemoglobin 14.1 g/dL (13.5-17.5); IMMATURE GRAN ABSOLUTE AUTO 0.19 K/mm3 (0.00-0.10); IMMATURE GRAN PERCENT AUTO 1 % (0-1); LYMPHOCYTES ABSOLUTE AUTO 0.88 K/mm3 (0.84-5.20); LYMPHOCYTES PERCENT AUTO 5 % (21-46); MONOCYTES ABSOLUTE AUTO 1.59 K/mm3 (0.16-1.47); MONOCYTES PERCENT AUTO 9 % (4-13); Mean Corpuscular HGB 32.9 pg (26.0-34.0); Mean Corpuscular HGB Conc 34.6 g/dL (31.5-36.5); Mean Corpuscular Volume 95 fL (80-100); Mean Platelet Volume 11.9 fL (9.1-12.4); NEUTROPHILS ABSOLUTE AUTO 15.09 K/mm3 (1.96-9.15); NEUTROPHILS PERCENT AUTO 84 % (41-73); Platelet Count 220 K/mm3 (150-400); RDW Coefficient Variation 14.2 % (11.7-14.2); RDW Standard Deviation 49.1 fL (35.1-46.3); Red Blood Cell Count 4.28 M/mm3 (4.30-5.90); White Blood Cell Count 17.95 K/mm3 (4.00-11.30)
[2022-08-30 04:25] LABS: Albumin, Blood 2.5 g/dL (3.4-5.0); Albumin/Globulin Ratio 0.7 (0.8-1.8); Bun/Creatinine Ratio 35.8 (12.0-20.0); Calcium, Blood 8.9 mg/dL (8.5-10.1); Creatinine, Blood 0.7 mg/dL (0.60-1.20); Globulin, Blood 3.8 g/dL (2.2-4.0); Total Protein, Blood 6.3 g/dL (6.4-8.2)
[2022-08-30 04:36] LABS: Magnesium, Blood 1.8 mg/dL (1.6-2.4)
[2022-08-30 05:09] VITALS: BP 124/71
--- NOTE | 2022-08-30 06:02 | NUR ---
Assumed care of pt at 0145 as an ER admit. A/Ox4 and cooperative with care. Was able to stand pivot from gurney to bed with a 2 assist, patient is bedrest at this time. C/o pain "all over", partially relieved with PRN. Maintains over 90% on RA, LS dim t/o. Afib on tele 120-170's, denies CP/pressure, BP stable on Cardizem gtt running at 20. Dig PO also given this shift. Strong radial pulses bl. Absent pedal/tibial pulses in both extremities despite doppler use. Pale, cool skin. R 5th toe with wound and eschar. L lateral ankle with wound as well. Patient appears depressed but still cooperative with care. Unable to tell me his medications and last time he took them, states his bestfriend handles that. Will report to stephanie DWYER.
[2022-08-30 07:51] VITALS: BP 130/88
[2022-08-30 11:20] VITALS: BP 113/75
--- NOTE | 2022-08-30 14:45 | NUR ---
Spiritual care visit conducted. Patient voices emotional pain concerning his diagnosis, his fears about "not being accepted into heaven" and his regrets. I hear confession, reinforce helpful attitudes and perspectives and provide theological insights and prayer. Patient is tearful and grateful and stated that he is a much better place in his headspace.
[2022-08-30 15:05] VITALS: BP 120/65
--- NOTE | 2022-08-30 16:42 | NUR ---
Met with pt at bedside today. He appears SOB at rest. Using accessory muscles to to breath. He admits to feeling SOB at rest. He tells me he does not have any family; has "2 good friends", one of them named Summer. She is on his face sheet, and he gave permission for me to call her for more information. He is a , states he is service connected.
--- NOTE | 2022-08-30 17:41 | NUR ---
END OF SHIFT PT A&O X4, VERY WEAK, ABLE TO MINIMALLY REPOSITION SELF IN BED, STRUGGLES TO LIFT OWN ARM FOR APPLICATION OF BLOOD PRESSURE CUFF. MONITOR SHOWING AFIB, HR UP TO 170s WHILE PT AT REST THIS AM EVEN W/ CARDIZEM GTT INFUSING @ 20 MG/HR. PT HR MUCH IMPROVED AFTER SCHEDULED AM PO MEDICATIONS, SHOWING 80s-140s. CARDIZEM GTT ABLE TO BE TITRATED DOWN TO 15 MG/HR. PT SOB W/ TALKING THOUGH SPO2 > 92% ON RA. LUNG SOUNDS W/ WHEEZE. RT PROVIDING BREATHING TXs. PT SKIN W/ MULTIPLE BRUISES. L PEDAL PULSE ABSENT USING DOPPLER. R PEDAL PULSE PRESENT W/ DOPPLER. PT REPORTING BACK PAIN & OVERALL ACHING. PT REPORTING IMPROVEMENT W/ PRN PAIN MEDICATION PER EMAR. PT DISCUSSION W/ THIS AM, PT CHANGE FROM FULL CODE TO DNR STATUS. PALLIATIVE CARE NURSE TO FOR DISCUSSION W/ PT WELL.
[2022-08-30 19:44] VITALS: BP 131/84
[2022-08-30 22:00] VITALS: BP 126/70
[2022-08-31] VITALS (7 sets, daily range): BP systolic 108–131; BP diastolic 67–88
[2022-08-31 04:24] LABS: Hematocrit 39.4 % (37.0-53.0); Hemoglobin 13.4 g/dL (13.5-17.5); Mean Corpuscular HGB 32.2 pg (26.0-34.0); Mean Corpuscular Volume 95 fL (80-100); Mean Platelet Volume 11.7 fL (9.1-12.4); Platelet Count 230 K/mm3 (150-400); RDW Coefficient Variation 14.3 % (11.7-14.2); RDW Standard Deviation 49.4 fL (35.1-46.3); Red Blood Cell Count 4.16 M/mm3 (4.30-5.90); White Blood Cell Count 23.44 K/mm3 (4.00-11.30)
[2022-08-31 04:39] LABS: Bun/Creatinine Ratio 35.6 (12.0-20.0); Calcium, Blood 9.1 mg/dL (8.5-10.1); Creatinine, Blood 0.9 mg/dL (0.60-1.20); Potassium, Blood 4.2 mmol/L (3.5-5.5)
[2022-08-31 05:08] LABS: BAND PERCENT MAN 5 % (0-8); BASOPHILS PERCENT MAN 0 % (0-2); EOSINOPHILS PERCENT MAN 0 % (0-6); LYMPHOCYTES ABSOLUTE MAN 0.46 K/mm3 (0.84-5.20); LYMPHOCYTES PERCENT MAN 2 % (21-46); MONOCYTES PERCENT MAN 6 % (4-13); NEUTROPHILS ABSOLUTE MAN 21.56 K/mm3 (1.96-9.15); SEG NEUTROPHILS PERCENT MAN 87 % (41-73); TOTAL CELLS COUNTED 100
--- NOTE | 2022-08-31 05:18 | NUR ---
SHIFT SUMMARY THIS RN ASSUMED CARE OF PATIENT AT 1900. PATIENT ALERT AND ORIENTED FULLY DURING THIS SHIFT. BP STABLE. AFIB WITH HR 80-130'S DURING THIS SHIFT. TITRATING CARDIZEM GTT NEEDED, CURRENTLY INFUSING AT 20MG/HR. AFEBRILE. SPO2 >92%. OCCASIONAL WHEEZES NOTED; PRN BREATHING TREATMENTS GIVEN. RIGHT PEDAL PULSE FOUND WITH DOPPLER, ABSENT LEFT PEDAL PULSE; MD AWARE. PATIENT REPORTS PAIN IN FEET, RT HIP, AND BACK DURING THIS SHIFT; MEDICATED PER EMAR. PATIENT APPEARS WEAK WITH ALL MOVEMENT. MOTTLED DISCOLORATION NOTED ON BILATERAL KNEES BY THIS RN. PT USING URINAL INDEPENDENTLY. BED IN LOWEST POSITION AND CALL LIGHT WITHIN REACH. THIS RN WILL CONTINUE TO MONITOR UNTIL SHIFT CHANGE AT 0700.
--- NOTE | 2022-08-31 08:23 | NUR ---
UPDATE PT A&O X3. PT QUESTIONING WHAT TIME IT IS THIS AM, THEN ASKING "AT NIGHT OR DAY?" PT STATING "I'M JUST CONFUSED TODAY." PT BREATHING UNCOMFORTABLY THIS MORNING, REQUESTING "NEBULIZER." LUNG SOUNDS COARSE. PT W/ RATTLING CONGESTED SOUND. PT STATING "I CAN'T" WHEN INSTRUCTED TO COUGH. PT THEN COUGHING VERY WEAK COUGH. PT SPO2 DESAT TO 86% W/ PT REFUSING SUCTIONING OR OXYGEN USE. PT STATING "NO I DON'T WANT ANY OF THAT." PT STATING "I THINK IT'S TIME FOR ME TO MEET THE BIG [facility] MARIA." WHEN ASKING PT IF HE IS READY FOR COMFORT CARE PT STATING "NO, BUT WHEN IT'S MY TIME IT'LL BE MY TIME." PT BREATHING MORE COMFORTABLY AFTER BREATHING TX BY RTImani MAHER THEN TO TO VISIT W/ PT. MONITOR SHOWING AFIB, HR 120s-140s. CARDIZEM GTT INFUSING @ 20 MG/HR.
--- NOTE | 2022-08-31 09:50 | NUR ---
Spiritual care visit conducted. PAtient is lying in bed and alert. He has a flat affect and is slow to engage. Once I was in conversation with the patient for 15 minutes or so he picked up his demeanor, had more enthusiasm and was fully engaged. He talked about the joys in his life through the yrs, his positive connections and his hopes going forward. He states that he still has a little fight left and that, although he is DNR, he will keep utilizing all his resources, unless a medical professional tells him it will no longer be of benefit. I provide therapeutic listening, companionship and prayer. Patient responded well and showed signs of greater resolve and marci. I will contue to remain available to patient and family.
--- NOTE | 2022-08-31 12:32 | NUR ---
ETHICS CONSULT: Spoke to Barry Valentin and Siria Sandoval. Pt is a 77 year old who was admitted with leg/body pain. Pt lives alone, with no known family. He has a friend named Michelle on his facesheet who has been assisting him and acting as both a caregiver and advocate. She is the one who called 911 on 08/29 due to his increased weakness, confusion and falls. The pt was admitted with A-fib with RVR, PVD with recent L leg stent placed. He also has systolic and diastolic heart failure, cachexia and deconditioning. The pt's confusion has only increased since admission, and in speaking with Michelle, she verified this confusion has been increasing at home as well, and he is no longer able to make decisions for himself. According to conversation with Barry Valentin, the "Statutory provisions provide for an intimate friend to act as proxy once a good marvel effort has been put forth to locate family when the pt is unable to make decisions". Michelle is willing to act as pt's decision maker, and requests comfort care for this patient. She also wishes for him to be placed into community hospice, either at the [place], or one of the contracted nursing homes. Received v/o from Dr. Norman to move forward with this process, and spoke to BELÉN Calloway about moving forward with hospice.
--- NOTE | 2022-08-31 18:10 | NUR ---
COMFORT CARE / TRANSFER TO MEDICAL PT ALERT & PLEASANT THIS AM-AFTERNOON THOUGH BECOMING MORE CONFUSED & INTERMITTNENTLY HAVING DIFFICULTY WORD FINDING. PT BECOMING PROGRESSIVELY WEAKER W/ MOVEMENTS & ALSO STATING "I'M READY FOR A NAP" AFTER ANY PT CARE OR INTERACTION. PT W/ NO APPETITE & PT REFUSING OXYGEN WHEN SPO2 DESAT. MONITOR SHOWING AFIB, HR 90s-140s W/ CARDIZEM GTT INFUSING @ 20 MG/HR PRIOR TO TELEMETRY & CARDIZEM DC WHEN PT TRANSISTIONED TO COMFORT CARE. PT VERY PLEASANT DESPITE PAIN/DISCOMFORT & CURRENT HEALTH STATUS. PT MEDICATED FOR PAIN & ANXIETY PER EMAR W/ PT REPORT OF SMALL IMPROVEMENT. PT THEN ABLE TO SLEEP. PT FRIEND HALIMA TO PT BEDSIDE SUPPORTIVE OF PT. REPORT GIVEN TO ACCEPTING MEDICAL FLOOR RN ASSUMING CARE OF PT. PT TAKEN TO RM 301 BY BED W/ BELONGINGS @ APPROX 1815. PT FRIEND HALIMA NOTIFIED OF PT TRANSFER.
--- NOTE | 2022-08-31 18:20 | NUR ---
pt arrived to 301 via bed, left him in his bed, his eyes are closed resting peacfully. call light in reach. condom cath in place, will monitor for changes or pain.
--- NOTE | 2022-09-01 04:43 | NUR ---
SHIFT SUMMARY: VINCE AROUSES TO VOICE AND RESPONDS APPROPRIATELY. HE HAS REPORTED EFFECTIVE PAIN CONTROL WITH 10 MG OF ROXANOL THIS SHIFT. ATROPINE HAS EFFECTIVELY REDUCED SECRETIONS. HE HAS BEEN TURNED AND REPOSITIONED SEVERAL TIMES THIS SHIFT, REFUSING ON OCCASION. HE HAS ALLOWED ORAL SUCTIONING ONCE THIS SHIFT, BUT HAS BEEN AGREEABLE TO MOUTH MOISTURIZER. HE HAS BEEN ABLE TO MAKE HIS NEEDS KNOWN. WCTM UNTIL REPORT IS GIVEN TO DAY SHIFT RN.
--- NOTE | 2022-09-01 18:42 | NUR ---
SHIFT SUMMARY: PT A/O X 3, BEDREST. PT WAS ALERT THIS MORNING AND RESPONSIVE TO QUESTIONS. IN THE AFTERNOON PT REPORTED BACK PAIN AND OXYCODONE GIVEN PER HIS REQUEST. PT TOOK A LONG NAP AND SLEPT FOR ABOUT 4 HOURS. WHEN HE AWOKE HE BECAME VERY SOB AT REST. HE WAS VERY PAINFUL WITH REPOSITIONING SO ROXANOL 20 MG SL WAS GIVEN FOR HIS SYMPTOMS. FEET WERE VERY PURPLE. PT NOW RESTING IN BED AND DENIES SOB OR PAIN. HE APPEARS COMFORTABLE WITH PAINAD 0/10.
--- NOTE | 2022-09-02 06:26 | NUR ---
INCREASINGLY MOIST RESPIRATIONS, ATROPINE GIVEN X 2 LATER IN SHIFT. CLEARS THROAT WITH SOME DIFFICULTY. OXYCODONE AND ROXANOL GIVEN FOR PATIENT COMFORT. PAINFUL WITH EACH REPOSITION. INTERMITTENT CONFUSION NOTED AND DELAYED RESPONSES TO QUESTIONS.
--- NOTE | 2022-09-02 07:34 | NUR ---
REFUSED HS INSULIN/BLOOD SUGAR CHECKS LAST NIGHT. OTHERWISE UNEVENTFUL NIGHT. VSS, AO, COOPERATIVE, AWAITING APPEAL DECISION AND DISCHARGE.
--- NOTE | 2022-09-02 18:40 | NUR ---
Pt has been turned throughout the day, medicated for pain several times, pt moans when moved otherwise has eyes closed, placed scopolamine patch for secretions, has been comfortable, had visitors, call light in reach.
[2022-09-03] MEDS ORDERED: TIZA4 PO (00:46)
[2022-09-03] MEDS ORDERED: KETO15TC TOP (00:47)
[2022-09-03] MEDS ORDERED: AQUAPHOR ITCH R28 GM TOP (00:50)
[2022-09-03] MEDS ORDERED: SPIR25 PO (00:51)
[2022-09-03] MEDS ORDERED: GORMEL TEN228 G1 TOP (00:51)
[2022-09-03] MEDS ORDERED: METO50ER PO (00:52)
[2022-09-03] MEDS ORDERED: ELIQUIS5 M3 PO (00:52)
[2022-09-03] MEDS ORDERED: TORSE20 PO (00:54)
[2022-09-03] MEDS ORDERED: STRIVERDI RESPIM4 G1 INH (00:54)
[2022-09-03] MEDS ORDERED: DICLOFENAC SOD100 G1 TOP (00:56)
[2022-09-03] MEDS ORDERED: AMMONIUM LACTATE TOP (00:58)
[2022-09-03] MEDS ORDERED: SOLTICE QUICK-R85 GM TOP (00:59)
[2022-09-03] MEDS ORDERED: Amiodarone HCl200 MG PO (01:00)
--- NOTE | 2022-09-03 07:20 | NUR ---
Ethics consult order processed. The principal is medically declining and lacks decisional capability. The clinical team does not have recourse to family members for substitute or proxy care planning. I affirmed that in alignment with ORS [id number], his close friend is elegible to presume the responsibility of this role, as long as a good marvel effort has been facilitated to locate a more suitable, top of pyramid resource. It was reported that an exhaustive search of this nature was conducted but without success. Thank you for this consult. Barry Valentin ThD, AMELIA
--- NOTE | 2022-09-03 07:33 | NUR ---
PT NEAR END OF SHIFT AT 0625. CONTACTED PRESTON VARGHESE. CONTACTED MD TO REPORT AND REPORTED TO TEST FACILITY ENGINEER. NO HOME SET UP SO CHARGE NURSE WILL SET IT UP.
== END 2022-09-03 06:25 | DRG 308 ==
LOC: ER 20:59 → PCU 21:00 → ER 21:00 → ERHOLD 21:00 → PCU 21:00 → ERHOLD 08-30 01:48 → PCU 08-30 14:52 → MEDS 08-31 18:11
PROVIDERS: Emergency Medicine; Internal Medicine; ADMIT Internal Medicine
DX: I48.91 Unspecified atrial fibrillation (principal); E43 Unspecified severe protein-calorie malnutrition; J96.12 Chronic respiratory failure with hypercapnia; E87.1 Hypo-osmolality and hyponatremia; N39.0 Urinary tract infection, site not specified; R64 Cachexia; C80.0 Disseminated malignant neoplasm, unspecified; I50.42 Chronic combined systolic (congestive) and diastolic (congestive) heart failure; Z66 Do not resuscitate; Z51.5 Encounter for palliative care; I11.0 Hypertensive heart disease with heart failure; J44.9 Chronic obstructive pulmonary disease, unspecified; B96.20 Unspecified Escherichia coli [E. coli] as the cause of diseases classified elsewhere; D72.829 Elevated white blood cell count, unspecified; I73.9 Peripheral vascular disease, unspecified; E86.0 Dehydration; B95.61 Methicillin susceptible Staphylococcus aureus infection as the cause of diseases classified elsewhere; E78.5 Hyperlipidemia, unspecified; K21.9 Gastro-esophageal reflux disease without esophagitis; R29.6 Repeated falls; K22.9 Disease of esophagus, unspecified; I70.90 Unspecified atherosclerosis; E88.09 Other disorders of plasma-protein metabolism, not elsewhere classified; F17.210 Nicotine dependence, cigarettes, uncomplicated; Z86.711 Personal history of pulmonary embolism; Z98.890 Other specified postprocedural states; Z79.891 Long term (current) use of opiate analgesic; Z95.5 Presence of coronary angioplasty implant and graft; Z68.21 Body mass index [BMI] 21.0-21.9, adult; Z88.8 Allergy status to other drugs, medicaments and biological substances; Z79.899 Other long term (current) drug therapy
CPT/HCPCS: 36415; 80048; 80053; 80162; 81001; 83735; 83880; 84145; 85025; 85610; 87077; 87086; 87186; 93005; 93010; 93926; 94640; 94664; 94760; 96365; 96366; 96375; 96376; 99284-25; A9270; G0378; J1160; J1650; J2060; J2270; J3010; J7030